=== PATIENT | female | born 1985 | race Caucasian/White ===

== ENCOUNTER 2024-07-12 14:26 | Outpatient (AMB) | payer OTHER, SELFPAY ==
--- NOTE | 2024-07-12 14:36 | MHC.OFFVIS ---
Intake Visit Reasons: Family Med Ref for VV Intake Note: Patient presents for VV. Has a vein on the right thigh that is burning, tingly. Some swelling and redness. Thigh vein is the one that hurts and is of great concern. Accompanied by: Self / Same As Patient Allergies No Known Allergies Allergy (Verified 07/12/24 14:38) [facility] Family Med Ref for VV: Details: Very pleasant 39-year-old patient presents for painful varicose veins. Complaints include pain over varicosities, swelling of lower extremities, cramping, fatigue, and heaviness of the lower extremities. It has been affecting there daily activities including walking. It is noted more so in right leg. Of note patient is a nonsmoker nondiabetic. Patient reports prior history of what sounds like sclerotherapy. Denies any history of ablation. Patient denies any history of DVT/ PE. Of note patient's mother had prior history of 2 PE events Patient denies any history of phlebitis. Trial of compression includes - [id number] They now present for vascular evaluation regarding their varicose veins. Review of Systems Const Reports as per HPI ENT Reports no additional complaints Card Denies chest pain, Denies chest pain at rest and Denies chest pain with activity Resp Denies chest congestion and Denies cough GI Reports no additional complaints Musc Details: pain over varicosities, aching of lower extremities, swelling, cramping, heaviness and tiredness, itching Denies abnormal gait Skin/Breast Reports pruritus and Denies wounds Neuro Reports no additional complaints and Denies abnormal gait Psych Denies no additional complaints Physical Exam Const General: cooperative, healthy appearing and comfortable Orientation/consciousness: oriented to person, oriented to place and oriented to time Neck Carotids: no bruits Chest Chest palpation & inspection: normal inspection of the chest and normal palpation of entire chest wall Resp Effort & Inspection: normal respiratory effort and able to speak in complete sentences Cardio Rate: regular rate Heart sounds: S1 normal heart sound present and S2 normal heart sound present Peripheral pulses: Peripheral pulses 2+ throughout GI Inspection: Yes normal to inspection Skin Other: +2 edema, large rope-like varicosities greater than 4 mm, right thigh and left calf CEAP Classification C4 - skin color changes Ep - Etiology Primary As - superficial veins P - reflux General skin exam: dry skin Neuro General: oriented to person, oriented to place and oriented to time Extrem Right lower extremity: full ROM, normal capillary refill and edema Left lower extremity: full ROM, normal capillary refill and edema Psych Mental Status: mental status grossly normal Assessment & Plan Assessment & Plan (1) Varicose veins of right lower extremity with inflammation: Code(s): I83.11 - Varicose veins of right lower extremity with inflammation Category: Medical Plan: In short, the patient has evidence of venous insufficiency. I have discussed the pathophysiology with the patient. In addition I have provided informational material regarding venous disease to the patient. We have discussed conservative measures including compression, elevation, and exercise. I have also provided a handout regarding appropriate use of compression stockings and where to purchase good compression stockings as well. I have taken the liberty of ordering venous insufficiency testing with the patient. They will follow up with me after testing. The patient had an opportunity to ask questions regarding the treatment plan. All questions were answered. Imaging studies, laboratory studies and physical exam results were discussed and reviewed in detail. No major barriers to understanding were identified. The patient expressed understanding and agreement with the above treatment plan. The patient is aware they should contact our office by phone for worsening of the current condition or the appearance of new symptoms. Thank you for allowing me to participate in the vascular care of this patient. If you have any questions or concerns regarding the treatment for the above condition please do not hesitate to contact me. The office telephone contact is [phone]. This note is constructed using voice recognition software. While every effort has been made to ensure accuracy, investment counselor errors may have been included. Thank you for allowing me to participate in the care of your patient. Yours sincerely, Nghia Parson MD, FACS, R.P.V.I. Orders: Orders US venous duplex LE BI 1 Week I83.11 - Varicose veins of right lower extremity with inflammation Coding Level of Care Code New Pt Level 4 (32500) Diagnoses Varicose veins of right lower extremity with inflammation I83.11
== END 2024-07-12 15:05 | disposition home or self-care (01) ==
LOC: HO.HVS 14:27
PROVIDERS: PCP Family Medicine; Visit Provider Surgery Vascular Surgery
DX: I83.11 Varicose veins of right lower extremity with inflammation (principal)
CPT/HCPCS: 99204

== ENCOUNTER → 2024-07-12 14:26 | Outpatient (BNVA) | payer OTHER, SELFPAY | PROVIDERS: PCP Family Medicine; Visit Provider Surgery Vascular Surgery | DX: I83.11 Varicose veins of right lower extremity with inflammation (principal) | CPT/HCPCS: 99202 ==

== ENCOUNTER 2024-07-27 08:15 | Outpatient (REF) | payer OTHER, SELFPAY ==
--- NOTE | ~2024-07-27 | US_ITS ---
EXAMINATION: US VENOUS BILATERAL LOWER EXTREMITIES (REFLUX EXAM) CLINICAL INDICATION: Leg pain and varicose veins. COMPARISON: None available. TECHNIQUE: Color-flow triplex imaging and compression Doppler was performed to evaluate both the deep and the superficial systems bilaterally. To evaluate the superficial system, the examination was performed in the upright position. Color-flow Doppler ultrasound and compression ultrasound were utilized. In addition, maneuvers were utilized to demonstrate reflux. FINDINGS: 1. DEEP VENOUS ULTRASOUND OF THE RIGHT LOWER EXTREMITY: Respiratory variation, normal compression and augmented flow are noted in the right common femoral vein as well as the right popliteal vein and there is no evidence of deep venous thrombosis at these locations. There is no evidence of reflux in the deep system in either the common femoral vein or the popliteal vein. There is no evidence of a Cannon's cyst. 2. SUPERFICIAL ULTRASOUND WITH DOPPLER OF RIGHT LOWER EXTREMITY: The right great saphenous vein is seen only at its origin measuring 8 mm and demonstrates 1.8 seconds of reflux. Has this patient undergone ablation? It is seen again in the mid calf and ankle measuring 2 and 3 mm without reflux. Duplicated Right Great Saphenous Vein: There is a lateral accessory saphenous measuring 5 mm that demonstrates over 3 seconds of reflux. The right small saphenous vein measures 3 mm and shows no reflux. Accessory Vein of Giacomini: None. Incompetent Perforators: None. Varices Present: Multiple varices are seen ranging in size up to 1.3 cm (which arises off the right accessory saphenous vein) which demonstrate reflux. 3. DEEP VENOUS ULTRASOUND OF THE LEFT LOWER EXTREMITY: Respiratory variation, normal compression and augmented flow are noted in the left common femoral vein as well as the left popliteal vein and there is no evidence of deep venous thrombosis at these locations. There is 2.4 seconds of reflux present in the left popliteal vein. There is no evidence of a Cannon's cyst. 4. SUPERFICIAL ULTRASOUND WITH DOPPLER OF LEFT LOWER EXTREMITY: Left great saphenous vein is only seen proximally measuring 1.2 cm and demonstrates reflux. It is again seen in the mid calf and ankle measuring 4 mm with 2.5 seconds of reflux. Duplicated Left Great Saphenous Vein: There is a 9 mm lateral accessory saphenous vein that demonstrates 2.5 seconds of reflux. The left small saphenous vein measures 3 mm and shows no reflux. Accessory Vein of Giacomini: None. Incompetent Perforators: There is an incompetent hypnotherapist 28 cm from the bottom of the foot measuring 3 mm with 1.5 seconds of reflux. Varices Present: Varices are present measuring up to 0.6 cm, some of which demonstrate reflux. US/US venous insuf bilat IMPRESSION: 1. There is 2.4 seconds of reflux in the left popliteal vein, but the deep venous systems are otherwise competent. 2. Both saphenous veins seen predominantly only at their origins with distal vein seen again at the level of the mid calf and ankle. 3. Bilateral lateral accessory saphenous veins are present with reflux. 4. Bilateral refluxing varicosities. 5. Incompetent hypnotherapist on the left, as described above. Electronically signed by: Hernandez Cummings MD 08/08/2024 10:37 AM [facility] P[facility]
== END 2024-07-27 08:16 | disposition home or self-care (01) ==
LOC: HO.US 08:15
PROVIDERS: PCP Family Medicine; Visit Provider Surgery Vascular Surgery
DX: I83.11 Varicose veins of right lower extremity with inflammation (principal)
CPT/HCPCS: 93970

== ENCOUNTER 2024-08-11 14:49 | Outpatient (AMB) | payer OTHER, SELFPAY ==
--- NOTE | 2024-08-11 14:51 | MHC.OFFVIS ---
Intake Visit Reasons: Follow up after ultrasound Intake Note: Follow up US 07/27/24 for LE VV. Left LE thigh Rope like vein and some veins on the Right LE. Left LE VV is painful, burning, tingling and causing some swelling. Started about 2 years ago. Hx of VV ablations in bilateral LE 2007 @ [facility]. Accompanied by: Self / Same As Patient Allergies evironmental Allergy (Mild, Uncoded 08/11/24 14:55) Itchy Eyes HPI HPI Follow up after ultrasound: Details: 39-year-old patient presents for follow-up evaluation regarding venous disease. Reports that they had previous venous ablation is actually done at the [facility] and developed a significantly large right lower extremity varicosity. It has been a source of pain and discomfort. They have been compliant with her compression with no significant relief. Now presents for follow-up with venous insufficiency testing. [facility] Medical History (Updated 08/11/24 @ 14:58 by SARA Jung) FH: mastectomy (~2023) Social History (Updated 08/11/24 @ 14:58 by SARA Jung) Patient Tobacco Use Status: Never used Tobacco Review of Systems Const Reports as per HPI ENT Reports no additional complaints Card Denies chest pain, Denies chest pain at rest and Denies chest pain with activity Resp Denies chest congestion and Denies cough GI Reports no additional complaints Musc Details: pain over varicosities, aching of lower extremities, swelling, cramping, heaviness and tiredness, itching Denies abnormal gait Skin/Breast Reports pruritus and Denies wounds Neuro Reports no additional complaints and Denies abnormal gait Psych Denies no additional complaints Physical Exam Const General: cooperative, healthy appearing and comfortable Orientation/consciousness: oriented to person, oriented to place and oriented to time Neck Carotids: no bruits Chest Chest palpation & inspection: normal inspection of the chest and normal palpation of entire chest wall Resp Effort & Inspection: normal respiratory effort and able to speak in complete sentences Cardio Rate: regular rate Heart sounds: S1 normal heart sound present and S2 normal heart sound present Peripheral pulses: Peripheral pulses 2+ throughout GI Inspection: Yes normal to inspection Skin Other: +2 edema, large rope-like varicosities greater than 4 mm right calf and thigh CEAP Classification C4 - skin color changes Ep - Etiology Primary As - superficial veins P - reflux General skin exam: dry skin Neuro General: oriented to person, oriented to place and oriented to time Extrem Right lower extremity: full ROM, normal capillary refill and edema Left lower extremity: full ROM, normal capillary refill and edema Psych Mental Status: mental status grossly normal Results Reviewed Results Reviewed: Brief summary of venous insufficiency testing is as follows: right great saphenous vein: negative right small saphenous vein: negative right accessory vein: none present left great saphenous vein: negative left small saphenous vein: negative left accessory vein: none present Please note there is no evidence of any venous aneurysms or significant tortuosity Assessment & Plan Assessment & Plan (1) Varicose veins of right lower extremity with inflammation: Code(s): I83.11 - Varicose veins of right lower extremity with inflammation Category: Medical Plan: This patient has varicose veins with inflammation. They continue to be a source of discomfort for the patient. The patient has tried conservative treatment with compression, leg elevation and exercise program for over 3 months time. They have been compliant with all treatment. This has provided minimal relief for the patient. I do not anticipate this course of treatment will alter the underlying etiology. The patient has been scheduled for lower extremity venous treatment inclusive of --- right leg microphlebectomy. Risks, benefits, and complications of this procedure has been discussed in detail with the patient including but not limited to bleeding, infection, and the development of a DVT. The patient has demonstrated a clear understanding and has consented. We will schedule the patient as soon as possible. Thank you for allowing us to participate in this patient's care. If there are any questions or concerns please do not hesitate to contact us. Coding Level of Care Code Est Pt Level 4 (07297) Diagnoses Varicose veins of right lower extremity with inflammation I83.11
--- OUTSIDE RECORDS SUMMARY | 2024-08-17 04:09 | XMS_ITS | Data Portability ---
Author Organization [employer] [facility] Address [address] [place] [address] Assessment Encounter Date Assessment Date Assessment LastModified by Organization Details LastModified Time 06/17/2024 06/17/2024 XRAYS: AP and Lateral Images of the Lumbar Spine from 12/29/2023 [place] [facility] [place] obtained and interpreted independently by me in clinic today and reviewed with the patient. Anatomy: Normal, no fractures or anomalies Alignment: Loss of lumbar lordosis, no spondylolisthesis, no scoliosis Degenerative Levels: Degenerative changes in the lower lumbar spine with some facet arthrosis particularly at L4-5 and L5-S1. Preservation of disc height overall. ADVANCED IMAGING: MRI of the Lumbar Spine from December 28, 2023 [place] [facility] [place] interpreted independently by me in clinic today and reviewed with the patient. Anatomy: There appears to be increased pedicle signal in the right L5 pedicle with what appears to be a pars fracture at area displacement. There is a right sided hemangioma in the L1 vertebral body. Alignment: Some loss of lumbar lordosis, no spondylolisthesis, no scoliosis Degenerative Levels: Some loss of disc hydration at L4-5. Significant facet arthrosis noted at the L4-5 and L5-S1 levels. Neurologic Compression: no neurologic compression. ASSESSMENT Diagnosis: 1) Right SI Joint DYsfunction 2) Right L5 Pars Fracture. The patient? s primary complaint is lower back pain. The pain is located on the right side of her lower back.On exam, the patient is neurologically intact throughout. She does have some tenderness over her right L5-S1 facet and the right PSIS. She has multiple positive SI joint provocative maneuvers. Her lumbar MRI shows a right-sided pars fracture at L5. I discussed the patient's and imaging findings. Her lumbar MRI does show a right-sided pars fracture at L5. She does, however, have all of the other findings of SI joint pathology. She has multiple physical exam findings that are pointing towards the SI joint. She also has had significant diagnostic relief with steroid injections into her right SI joint 2 times previously. She has done over 7 months of physical therapy and at this point, I do believe that she may be a good candidate for an SI joint stabilization. That said, the pars fracture on the right side at the L5-S1 level is certainly a confounding issue. I would like her to get a diagnostic injection into the right SI joint with local anesthetic alone to confirm the diagnosis. I would like this injection to be performed low in the SI joint, far away from the L5-S1 facet. A letter for this was sent to her to was sent to Dr. Shi to describe the injection and he will be performing this injection locally. I will also get a CT of the pelvis mostly to look at the anatomy of the pelvis, the hips, as well as the L5-S1 vertebrae. She will follow me after the CT scan and the injection. After which if she does get good diagnostic relief, we can consider moving forward with an SI joint stabilization. PLAN: The patients symptoms, imaging, diagnosis, and treatment options were discussed at length today. After educating the patient, the following recommendations were agreed upon: ------ The following new imaging should be obtained: CT Lumbar without Contrast on a Expedited basis ------ A referral was placed for Spinal Injections, specifically - right SI joint with local anesthetic alone. I discussed the risks and benefits of the injection. The patient was advised to keep a pain diary to assess the effects of the injection ------ FOLLOW UP The patient will follow up with us after obtaining the diagnostic tests above Not available 06/18/2024 11:54:07 07/29/2024 07/29/2024 ADVANCED IMAGING : CT of the Pelvis from 07/07/2024 were interpreted independently by me in clinic today and reviewed with the patient. Normal pelvic anatomy. No significant hip arthrosis noted. Degenerative change is seen in bilateral SI joints, slightly worse than the right side with a vacuum phenomenon in the right SI joint likely indicating some degree of micro instability. In the lower lumbar spine, there is a well healed pars defect on the right side at L5-S1. Some mild arthrosis and the facet joints at L45 and L5-S1 particularly at the right L4-5 facet. ASSESSMENT Diagnosis: Right SI Joint Dysfunction The patient? s primary complaint is lower back pain. The pain is located on the right side of her lower back.On exam, the patient is neurologically intact throughout. She does have some tenderness over her right L5-S1 facet and the right PSIS. She has multiple positive SI joint provocative maneuvers. Her pelvic CT shows degeneration in the SI joints. I discussed the patient's symptoms and imaging findings. Her CT does show air in the SI joint, which does indicate some degree of SI joint pathology. She had 95% pain relief for 2 hours after the diagnostic injection, which again confirms the diagnosis. She has now tried extensive physical therapy as well as multiple injections with relief. She has been wearing an SI joint stabilizing brace for several months and continues to have severe pain if she makes inappropriate movements or takes off the brace. She does have some concomitant lumbar pathology. However, the CT scan shows healing of the pars fracture at L5-S1 and I believe the diagnostic injection does confirm that the SI joint is a symptom generator. At this point, I do believe I have enough information and the patient has exhausted and failed conservative care to a sufficient degree to warrant surgical management. Surgery in my hands would be a right SI joint stabilization. I discussed the risks, benefits, and alternatives to surgery and the patient is interested in proceeding. We will plan to connect with her in about a month at which time we will have a better understanding of her schedule and can coordinate scheduling her surgery. She will follow up with me in 1 month. PLAN: The patients symptoms, imaging, diagnosis, and treatment options were discussed at length today. After educating the patient, the following recommendations were agreed upon: ------ FOLLOW UP The patient will follow up with us in a month Not available 07/29/2024 23:20:13 Plan of Treatment Reminders Order Date Submit Date Provider Last Modified By Organization Details Last Modified Time Details [facility]ments [facility] Sierra Hernandez MD Not available Not available Not available Lab None recorded. Referral None recorded. Procedures None recorded. Surgeries None recorded. Imaging XR, pelvis, 1 or 2 view 2023 024 [email or web address] [facility] - [facility] - [place], [address] [place] [address], [phone], 06/18/2024 11:51:22 CT, pelvis, w/o contrast - please include L5 in CT 2023 024 [facility], [address] [place], [address], 07/09/2024 14:40:50 Medication Orders None recorded. Patient TargetsNo targets recorded. Patient InstructionsNo instructions recorded. Reason for Referral None Reported. Results Created Date Observation Date Name Description Value Unit Range Abnormal Flag Note LastModifiedBy Organization Detail LastModifiedTime 06/17/20 XR, pelvi s, 1 or 2 view No observ ation record ed. [address] [place], [address], 06/18/2024 11:51:22 07/09/20 24 07/07/2024 CT, pelvi s, w/o contr ast No observ ation record ed. [address] [facility] [address] [place] [address], [address], 07/09/2024 14:43:45 Result Notes None recorded. Problems No Known Problems Procedures Surgical History None recorded. Imaging Results Imaging Date Name Status LastModified by Organiz ation Details LastModified Time 06/17/2024 XR, pelvis, 1 or 2 view completed [address] - [place] [address] [place], [address], 06/18/2024 11:51:22 07/07/2024 CT, pelvis, w/o contrast completed [address] [facility] [address] [place] [address], [address], 07/09/2024 14:43:45 Procedure Notes None recorded. Medical Equipment None Reported. Allergies No known drug allergies Medications Name Sig Start Date Stop Date Status Note LastModified by Organization Details LastModified Time 1ml syringe mis luer loc active Not Available Not Available Not Available terbinafine HCl 250 mg tablet TAKE 2 TABLETS DAILY FOR 7 DAYS EVERY 28 DAYS FOR 6 MONTHS active Not Available Not Available No t Available nystatin 100,000 unit/gram topical cream APPLY TO AFFECTED AREA TWICE A DAY IN THE MORNING AND IN THE EVENING active Not Available Not Available No t Available testosterone enanthate 200 mg/mL intramuscula r oil PLEASE SEE ATTACHED FOR DETAILED DIRECTIONS active Not Available Not Available N ot Available nystatin 100,000 unit/gram topical powder APPLY TO AFFECTED AREA TWICE A DAY active Not Available Not Available No t Available testosterone cypionate 200 mg/mL intramuscula r oil active Not Available Not Available Not Available oxycodone 5 mg tablet TAKE 1 TABLET BY MOUTH EVERY 4 HOURS NEEDED FOR BREAKTHROUG H PAIN FOR UP TO 3 DAYS. MAX 6TAB/DAY active Not Available Not Available No t Available testosterone 1.62 % (20.25 mg/1.25 gram) transdermal gel packet APPLY 2.5 G (2 PACKETS TOTAL) TOPICALLY 1 (ONE) TIME EACH DAY. active Not Available Not Available No t Available Vitals Date Recorded Body height Body mass index (BMI) Body weight Provider Name and Address Organization Details Last Updated DateTime 06/17/2024 167.64 cm 38.4 kg/m2 350321.98 [facility] 06/17/2024 10:17:47 Date Recorded Body height Body mass index (BMI) Body weight Provider Name and Address Organization Details Last Updated DateTime 07/29/2024 167.64 cm 38.4 kg/m2 070323.98 [facility] 07/29/2024 09:29:39 Social History Question Answer Notes LastModified by Organizat ion Details LastModified Time Tobacco Smoking Status [facility] 06/17/2024 10:18:40 What Is Your Level Of Alcohol Consumption? Occasional [email or web address] Information not available 06/17/2024 What Is Your Level Of Caffeine Consumption? Moderate [email or web address] Information not available 06/17/2024 What Was The Date Of Your Most Recent Tobacco Screening? 07/29/2024 [email or web address] Information not available 07/29/2024 Have You Ever Been Counseled For Unhealthy Alcohol Use? No [email or web address] Information not available 06/17/2024 Do You Use Any Illicit Or Recreational Drugs? Yes [email or web address] Information not available 06/17/2024 Has Tobacco Cessation Counseling Been Provided? No [email or web address] Information not available 06/17/2024 Do You Or Have You Ever Used Any Other Forms Of Tobacco Or Nicotine? No [email or web address] Information not available 06/17/2024 Sex: Unknown Functional Status None recorded. Mental Status None recorded. Family History Nothing Reported. Medical History Condition Response Coronary Artery Disease N Other N Gout N Blood Diseases N Hyperthyroidism N Blood disorders N Blood Transfusion N MRSA N Head Trauma/Injury N Emphysema N heart arrhythmia N Depression N COPD N Pneumonia N Arthritis (osteoarthritis, psoriatic, Rh eumatoid) N Steriod use (injection, oral) N Prostate Problems N Edema N Gastrointestinal Disease N Paralysis N Anxiety Disorder N Autoimmune disease N Dental problem (dentures) N Arthritis N Autoimmune Disorder (HIV/AIDS) N Blood Clot N Acid Reflux (GERD) N Cancer N Crohn's Disease N Leg or Foot Ulcers N Raynaud's Disease N Polio N Stroke/TIA N Arrhythmia N Rheumatoid Arthritis N Headaches Y Fibromyalgia N Kidney Disease N sports induced asthma N Hospitalizations N Spine/back problems N Migraines N Artificial Joints N Kidney or Bladder Problems N Skin Problems N Joint Pain N Neck Pain N Urinary Problems N Brain Injury N Ulcers N Infection N Rheumatic Fever N Bleeding Disorder N Tuberculosis N Hypertension (high blood pressure) N AIDS/HIV N Asthma Y Amputation N Substance Abuse N Respiratory Problem (asthma, COPD, sleep apnea) N Skin problem (eczema, ulcer, rash) N Sleep Disorder N Gastrointestinal Problem (GERD, reflux) N GERD/Reflux N Hepatitis N balance problem (vertigo) N Neuropathy N Pulmonary Embolism N Anxiety/Depression N Thyroid Disease N Ambulatory Support (cane, crutches, walk er) N Hernia N Ostomy N Hypothyroidism N Glaucoma N Lung Disease N Peripheral Vascular Disease (DVT, PE) N Pacemaker N Neurological Problem (MS, Parkinson's) N Vascular Disease N Anesthesia Complications N Deep Vein Thrombosis N Spasticity N Varicose Veins Y Head Injury/Concussion N Serious Illness or Injuries N Fischer Bite N History of fracture N Back Injury N Alcohol Overuse/Alcohol Abuse N Pain Management Treatment N Liver Disease N Organ Transplant N Dialysis N Foot Deformity N Dyslipidemia N Parkinson's Disease N Falls Y Thyroid Problems N ADD/ADHD N Osteoporosis/Osteopenia N Anemia N Lyme disease N Multiple Sclerosis N Back Pain Y Sjogren's Syndorme N Heart Attack ([place]) N Mental Illness N Heart Problems (atrial fibrillation, [place], pacemaker) N Diabetes N Seizures/Epilepsy N Hyperlipidemia (high cholesterol) N Congestive Heart Failure (CHF) N Diverticulitis N Vision Problems N Lupus N Ankylosing Spondylitis N Epilepsy/Seizures N Psoriasis N Sleep Apnea N Memory Loss (Alzheimer's, dementia) N Aneurysm N Heart Disease N Osteoporosis N Gynecological HistoryNo gynecological history recorded. Obstetrics History GPAL:G 0 P 0 0 0 0 Past Encounters Encounter ID Performer Location Encounter Start Date Encounter Closed Date Diagnosis/Indication Diagnosis SNOMED-CT Code Diagnosis ICD10 Code [id number] MD SHAHNAZ [facility] - [place] [place] [address] [place] [address] 06/17/2024 08:56:43 06/17/2024 10:47:14 Pain in pelvis 00419363 R10.2 Body mass index 30+ - obesity 083590044 Z68.38 [id number] Sierra Hernandez MD [facility] - OFFICE - [place] [address] [place] [address] 07/29/2024 09:05:13 07/29/2024 10:09:05 Body mass index 30+ - obesity 325961741 Z68.38 Sacroiliac joint pain 20 3058377 M53.3 Health Concerns Section Related Observation LastModified by Organization Detai ls LastModified Time None Recorded Concern Status LastModified by Organization Details LastModified Time None Recorded Advance Directives Directive None Recorded Payers Encounter Date Sequence Insurance Name Policy Number Policy [place] Covered Member ID [place] Member ID Guarantor Name 06/17/2024 1 [facility] [employer] - TOGETHER (MEDICAID HMO) [id number] Karla L Sushil [id number] 1 Karla Sushil 07/29/2024 1 [facility] [employer] - TOGETHER (MEDICAID HMO) [id number] Karla L Sushil [id number] 1 Karla Sushil Notes Date Note Type Note Provider Name and Address Organization Details Recorded Time 06/17/2024 text/html The patient is a 39 year old female who was referred to us by Dr. Shi. The patient? s primary complaint is lower back pain. The symptoms started 4 1/2 years ago. The patient believes the symptoms began due to a fall while hiking. The pain is dull and burning type in quality. It is 6/10 in severity. The patient reports no radiation of pain. The patient reports no significant weakness or numbness. The pain is worsened by sitting, standing, walking, biking, cooking, and yoga. Prior Treatments:The patient has been taking Tylenol and Ibuprofen with some relief. She has done 7 full months of physical therapy focused on these symptoms and the most recent course was in September of 2023. She underwent 2 prior injections into the right SI joint which gave her 75% relief for 3-4 weeks. The first injection was on 12/10/2023 at the right side with steroids and local anaesthetics, and the second injection was on 02/11/2024 at the right side with steroids and local anaesthetic. Both of these injections gave her 80% relief for 4 weeks. Relevant Medical History:N/A Social History: The patient is a non-smoker. She reports occasional alcohol use. She reports occasional marijuana use. She works as a physical therapist and self-employed. She lives with her and two kids. MD [address],[facility], [place], [address], [facility] 06/18/2024 11:54:16 07/29/2024 text/html The patient is a 39 y/o female who presents today for follow-up of her lower back pain. The patient? s primary complaint is lower back pain. The pain is located on the right side of her lower back. On exam, the patient is neurologically intact throughout. She does have some tenderness over her right L5-S1 facet and the right PSIS. She has multiple positive SI joint provocative maneuvers. Her lumbar MRI shows a right-sided pars fracture at L5. At the last appointment, I recommended obtaining CT scan of the pelvis and trialling right SI joint injection. The patient presents today, she is doing quite well overall. The patient rates the pain as 1/10 in severity today. She does have some ongoing right sided lower back pain. She reports no radiation of pain into the lower extremities. She reports no subjective weakness or numbness. She is not taking any medication for pain relief. She underwent a right sided SI joint purely diagnostic injection, which gave her 95% relief from her pain for 2 hours. MD [address],[facility], [place], [address], [facility] 07/29/2024 23:20:36 OBGyn Episode No OBEpisode recorded.
--- OUTSIDE RECORDS SUMMARY | 2024-08-17 04:09 | XMS_ITS | Continuity of Care Document ---
Author Organization LISA [employer] [facility] [place] [facility] Address [address] [place] [address] Assessment Encounter Date Assessment Date Assessment LastModified by Organization Details LastModified Time 06/17/2024 06/17/2024 XRAYS: AP and Lateral Images of the Lumbar Spine from 12/29/2023 done at [facility] [place] were obtained and interpreted independently by me [...] Lumbar Spine from December 28, 2023 at [facility] [place] were interpreted independently by me in clinic [...] us after obtaining the diagnostic tests above [email or web address] Not available 06/18/2024 11:54:07 Plan of Treatment Reminders Order Date Submit Date Provider Last Modified By Organization Details Last Modified Time Details Appointments [facility] 2023 03:30P M Sierra Hernandez MD Not available Not available Not available Lab None recorded. Referral None recorded. Procedures None recorded. Surgeries None recorded. Imaging XR, pelvis, 1 or 2 view 2023 [email or web address] [facility] [place], [address] [place] [address], [phone], 06/18/2024 11:51:22 CT, pelvis, w/o contrast - please include L5 in CT 2023 [facility], [address], [place], [address], 07/09/2024 14:40:50 Medication Orders None recorded. Patient TargetsNo targets recorded. Patient InstructionsNo instructions recorded. Reason for Referral None Reported. Results Created Date Observation Date Name Description Value Unit Range Abnormal Flag Note LastModifiedBy Organization Detail LastModifiedTime 06/17/20 XR, pelvi s, 1 or 2 view No observ ation record ed. [email or web address] [facility] [place] [address] [place], [address], 06/18/2024 11:51:22 07/09/2007/07/2024 CT, pelvi s, w/o contr ast No observ ation record ed. [email or web address] [facility] [address], [place], [address], 07/09/2024 14:43:45 Result Notes None recorded. Problems No Known Problems Procedures Surgical History None recorded. Imaging Results Imaging Date Name Status LastModified by Organiz ation Details LastModified Time 06/17/2024 XR, pelvis, 1 or 2 view completed [email or web address] [facility] [place] [address], [place], [address], 06/18/2024 11:51:22 Procedure Notes None recorded. Medical Equipment None [...] Updated DateTime 06/17/2024 167.64 cm 38.4 kg/m2 074798.98 g Vinicius Hutson [facility] 06/17/2024 10:17:47 Social History Question Answer Notes LastModified by Organizat ion Details LastModified Time Tobacco Smoking Status Never Smoker Vinicius flannery, [facility], [facility] 06/17/2024 10:18:40 What Is Your Level Of Alcohol Consumption? Occasional [email or web address] Information not available 06/17/2024 What Is Your Level Of Caffeine Consumption? Moderate [email or web address] Information not available 06/17/2024 What Was The Date Of Your Most Recent Tobacco Screening? 07/29/2024 [email or web address] Information not available 07/29/2024 Have You Ever Been Counseled For Unhealthy Alcohol Use? No [email or web address] Information not available 06/17/2024 Do You Use Any Illicit Or Recreational Drugs? Yes [email or web address] Information not available 06/17/2024 Has Tobacco Cessation Counseling Been Provided? No Information not available 06/17/2024 Do You Or Have You Ever Used Any Other Forms Of Tobacco Or Nicotine? No [email or web address] Information not available 06/17/2024 Sex: Unknown Functional Status None recorded. Mental Status None recorded. Family History Nothing Reported. Medical History Condition Response Coronary Artery Disease N Gout N Other N Blood Diseases N Hyperthyroidism N Blood Transfusion N MRSA N Blood disorders N Head Trauma/Injury N Emphysema N heart arrhythmia N COPD N Depression N Pneumonia N Arthritis (osteoarthritis, psoriatic, Rh [...] Raynaud's Disease N Polio N Stroke/TIA N Rheumatoid Arthritis N Arrhythmia N Headaches Y Fibromyalgia N Kidney Disease [...] walk er) N Hernia N Ostomy N Peripheral Vascular Disease (DVT, PE) N Glaucoma N Hypothyroidism N Lung Disease N Pacemaker N Neurological Problem (MS, Parkinson's) N Vascular Disease N Anesthesia Complications N Deep Vein Thrombosis N Varicose Veins Y Spasticity N Head Injury/Concussion N Serious Illness or Injuries N Fischer Bite N History of fracture N Back Injury N Alcohol Overuse/Alcohol Abuse N Pain Management Treatment N Liver Disease N Organ Transplant N Dialysis N Foot Deformity N Dyslipidemia N Parkinson's Disease N Falls Y Thyroid Problems N ADD/ADHD N Osteoporosis/Osteopenia N Anemia N Lyme disease N Back Pain Y Multiple Sclerosis N Sjogren's Syndorme N Heart Attack ([place]) N Heart Problems (atrial fibrillation, [place], pacemaker) N Mental Illness N Diabetes N Seizures/Epilepsy N Hyperlipidemia (high cholesterol) N Congestive Heart Failure (CHF) N Diverticulitis N Vision Problems N Ankylosing Spondylitis N Lupus N Psoriasis N Epilepsy/Seizures N Sleep Apnea N Memory Loss (Alzheimer's, dementia) N Aneurysm N Heart Disease N Osteoporosis N Gynecological HistoryNo gynecological history recorded. Obstetrics History GPAL:G 0 P 0 0 0 0 Past Encounters Encounter ID Performer Location Encounter Start Date Encounter Closed Date Diagnosis/Indication Diagnosis SNOMED-CT Code Diagnosis ICD10 Code [id number] Sierra Hernandez MD [facility] [place] - [address] [address] 06/17/2024 08:56:43 06/17/2024 10:47:14 Pain in pelvis 09449284 R10.2 Body mass index 30+ - obesity 380532924 Z68.38 Health Concerns Section Related Observation LastModified by Organization Detai ls LastModified Time None Recorded Concern Status LastModified by Organization Details LastModified Time None Recorded Payers Encounter Date Sequence Insurance Name Policy Number Policy [place] Covered Member ID [place] Member ID Guarantor Name 06/17/2024 1 [facility] [employer] - TOGETHER (MEDICAID HMO) [id number] Karla Ling [id number] Karla Ling Notes Date Note Type Note Provider Name [...] She lives with her and two kids. Sierra Hernandez MD [facility],[address], [address], [facility] 06/18/2024 11:54:16 OBGyn Episode No OBEpisode recorded.
--- OUTSIDE RECORDS SUMMARY | 2024-08-17 04:09 | XMS_ITS | Continuity of Care Document ---
Author Organization [employer] GojeeShea MBJI - [facility] Address [address] [place] [address] Assessment Encounter Date Assessment Date Assessment LastModified by Organization Details LastModified Time 07/29/2024 07/29/2024 ADV[facility]ED IMAGING : CT of [...] follow up with us in a month [email or web address] Not available 07/29/2024 23:20:13 Plan of Treatment Reminders Order Date Submit Date Provider Last Modified By Organization Details Last Modified Time Details [facility]ments [facility]30[facility] M Sierra Hernandez MD Not available Not available Not available Lab None recorded. Referral None recorded. Procedures None recorded. Surgeries None recorded. Imaging None recorded. Medication Orders None recorded. Patient TargetsNo targets recorded. Patient InstructionsNo instructions recorded. Reason for Referral None Reported. Results Created Date Observation Date Name Description Value Unit Range Abnormal Flag Note LastModifiedBy Organization Detail LastModifiedTime 07/09/2007/07/2024 CT, pelvi s, w/o contr ast No observ ation record ed. [email or web address] [facility] [address], [place], [address], 07/09/2024 14:43:45 Result Notes None recorded. Problems No Known Problems Medical Equipment None Reported. Allergies No known [...] Updated DateTime 07/29/2024 167.64 cm 38.4 kg/m2 796546.98 g Vinicius Hutson [facility] 07/29/2024 09:29:39 Social History Question Answer Notes LastModified by Organizat ion Details LastModified Time Tobacco Smoking Status Never Smoker Vinicius Hutson [facility] 06/17/2024 10:18:40 What Is Your Level Of Alcohol Consumption? Occasional [email or web address] Information not available 06/17/2024 What Is Your Level Of Caffeine Consumption? Moderate [email or web address] Information not available 06/17/2024 What Was The Date Of Your Most Recent Tobacco Screening? 07/29/2024 [email or web address] Information not available 07/29/2024 Have You Ever Been Counseled For Unhealthy Alcohol Use? No [email or web address] Information not available 06/17/2024 Do You Use Any Illicit Or Recreational Drugs? Yes [email or web address] Information not available 06/17/2024 Has Tobacco Cessation Counseling Been Provided? No [email or web address] Information not available 06/17/2024 Do You Or Have You Ever Used Any Other Forms Of Tobacco Or Nicotine? No [email or web address] Information not available 06/17/2024 Sex: Unknown Functional Status None recorded. Mental Status None recorded. Family History Nothing Reported. Medical History Condition Response Coronary Artery Disease N Other N Gout N Blood Diseases N Hyperthyroidism N Blood Transfusion N MRSA N Blood disorders N Emphysema N Head Trauma/Injury N heart arrhythmia N COPD N Depression [...] Stroke/TIA N Arrhythmia N Rheumatoid Arthritis N Fibromyalgia N Headaches Y Kidney Disease N sports induced asthma N [...] walk er) N Hernia N Ostomy N Glaucoma N Hypothyroidism N Lung Disease N Peripheral Vascular Disease [...] N Liver Disease N Organ Transplant N Foot Deformity N Dialysis N Dyslipidemia N Parkinson's Disease N Falls Y Thyroid Problems N ADD/ADHD N Osteoporosis/Osteopenia N Lyme disease N Anemia N Multiple Sclerosis N Back Pain Y Sjogren's Syndorme N Heart Attack ([place]) N Mental Illness N Heart Problems (atrial fibrillation, [place], pacemaker) N Diabetes N Seizures/Epilepsy N Hyperlipidemia (high cholesterol) N Congestive Heart Failure (CHF) N Diverticulitis N Vision Problems N Lupus N Ankylosing Spondylitis N Psoriasis N Epilepsy/Seizures N Sleep Apnea N Memory Loss (Alzheimer's, dementia) N Aneurysm N Heart Disease N Osteoporosis N Gynecological HistoryNo gynecological history recorded. Obstetrics History GPAL:G 0 P 0 0 0 0 Past Encounters Encounter ID Performer Location Encounter Start Date Encounter Closed Date Diagnosis/Indication Diagnosis SNOMED-CT Code Diagnosis ICD10 Code [id number] Sierra Hernandez MD [facility] - [facility] [address] [address] 07/29/2024 09:05:13 07/29/2024 10:09:05 Body mass index 30+ - obesity 383837046 Z68.38 Sacroiliac joint pain 20 3348769 M53.3 Health Concerns Section Related Observation LastModified by Organization Detai ls LastModified Time None Recorded Concern Status LastModified by Organization Details LastModified Time None Recorded Payers Encounter Date Sequence Insurance Name Policy Number Policy [place] Covered Member ID [place] Member ID Guarantor Name 07/29/2024 1 [facility] [employer] - TOGETHER (MEDICAID HMO) [id number] Karla Ling [id number] 1 Karla Ling Notes Date Note Type Note Provider Name and Address Organization Details Recorded Time 07/29/2024 text/html The patient is a 39 [...] relief from her pain for 2 hours. Sierra Hernandez MD [address] [place] [address],[address], [address], [facility], [facility] 07/29/2024 23:20:36 OBGyn Episode No OBEpisode recorded.
== END 2024-08-11 15:13 | disposition home or self-care (01) ==
PROVIDERS: PCP Family Medicine; Visit Provider Surgery Vascular Surgery
DX: I83.11 Varicose veins of right lower extremity with inflammation (principal)
CPT/HCPCS: 99214

== ENCOUNTER → 2024-08-11 14:49 | Outpatient (BNVA) | payer OTHER, SELFPAY | PROVIDERS: PCP Family Medicine; Visit Provider Surgery Vascular Surgery | DX: I83.11 Varicose veins of right lower extremity with inflammation (principal) | CPT/HCPCS: 99212 ==

== ENCOUNTER 2024-08-22 08:40 | Day surgery (SDC) | payer OTHER, SELFPAY ==
[2024-08-22] VITALS (8 sets, daily range): BP systolic 103–118; BP diastolic 57–80; PULSE 56–78; RESP 15–17; TEMP 36.1–36.5; O2SAT 95–98; BMI 37.3
--- OUTSIDE RECORDS SUMMARY | 2024-08-22 08:48 | XMS_ITS | Continuity of Care Document ---
Author Organization [employer] SHAHNAZ [facility] - [facility] Address [address] [place] [address] Assessment Encounter Date Assessment Date Assessment LastModified [...] Organization Details Last Modified Time Details [facility]ointments [facility] 03:30P M Sierra Hernandez MD Not [...] ast No observ ation record ed. [email or web address] [facility] [address], [place], [address], 07/09/2024 14:43:45 Result Notes None recorded. Problems [...] Updated DateTime 07/29/2024 167.64 cm 38.4 kg/m2 991034.98 g Vinicius Hutson [facility] 07/29/2024 09:29:39 Social History Question Answer Notes LastModified by Organizat ion Details LastModified Time Tobacco Smoking Status Never Smoker Vinicius Hutson [facility] 06/17/2024 10:18:40 What Is Your Level Of Alcohol Consumption? Occasional [email or web address] Information not available 06/17/2024 What Is Your Level Of Caffeine Consumption? Moderate [email or web address] Information not available 06/17/2024 What Was The Date Of Your Most Recent Tobacco Screening? 07/29/2024 [email or web address] Information not available 07/29/2024 Have You Ever Been Counseled For Unhealthy Alcohol Use? No [email or web address] Information not available 06/17/2024 Do You Use Any Illicit Or Recreational Drugs? Yes Information not available 06/17/2024 Has Tobacco Cessation Counseling Been Provided? No [email or web address] Information not available 06/17/2024 Do You Or Have You Ever Used Any Other Forms Of Tobacco Or Nicotine? No [email or web address] Information not available 06/17/2024 Sex: Unknown Functional [...] Pain Y Sjogren's Syndorme N Heart Attack ([place]) N Mental Illness N Heart Problems (atrial fibrillation, [place], pacemaker) N Diabetes N Seizures/Epilepsy N Hyperlipidemia [...] Diagnosis/Indication Diagnosis SNOMED-CT Code Diagnosis ICD10 Code [id number] Sierra Hernandez MD [facility] - [facility] - [address] [address] 07/29/2024 09:05:13 07/29/2024 10:09:05 Body mass index 30+ - obesity 007883648 Z68.38 Sacroiliac joint pain 20 3313092 M53.3 Health Concerns Section Related Observation LastModified by Organization Detai ls LastModified Time None Recorded Concern Status LastModified by Organization Details LastModified Time None Recorded Payers Encounter Date Sequence Insurance Name Policy Number Policy [place] Covered Member ID [place] Member ID Guarantor Name 07/29/2024 1 [facility] [employer] - TOGETHER (MEDICAID HMO) [id number] Karla Ling [id number] Karla Ling Notes Date Note Type [...] pain for 2 hours. Sierra Hernandez MD [address] [place] [address],[address], [address], [facility], [facility] 07/29/2024 23:20:36 OBGyn Episode No OBEpisode recorded.
--- OUTSIDE RECORDS SUMMARY | 2024-08-22 08:48 | XMS_ITS | Continuity of Care Document ---
Author Organization LISA [employer] [facility] - [facility] Address [address] [place] [address] Assessment Encounter Date Assessment Date Assessment LastModified by Organization Details LastModified Time 06/17/2024 06/17/2024 XRAYS: AP and Lateral Images of the Lumbar Spine from 12/29/2023 done at [facility] were obtained and interpreted [...] Lumbar Spine from December 28, 2023 at [facility] were interpreted independently by [...] Organization Details Last Modified Time Details Appointments [facility] 2023 03:30P M Sierra Hernandez MD Not available Not available Not available Lab None recorded. Referral None recorded. Procedures None recorded. Surgeries None recorded. Imaging XR, pelvis, 1 or [email or web address] [facility] [place], [address] [place] [address], [address], 06/18/2024 11:51:22 CT, pelvis, w/o contrast - please include L5 in CT 2023 [facility], [address] [facility], [place], [address], 07/09/2024 14:40:50 Medication Orders None recorded. Patient TargetsNo targets recorded. Patient InstructionsNo instructions recorded. Reason for Referral None Reported. Results Created Date Observation Date Name Description Value Unit Range Abnormal Flag Note LastModifiedBy Organization Detail LastModifiedTime 06/17/20 XR, pelvi s, 1 or 2 view No observ ation record ed. [email or web address] [facility] - [place] [address] [place], [address], 06/18/2024 11:51:22 07/09/2007/07/2024 CT, pelvi s, w/o contr ast No observ ation record ed. [email or web address] [facility] Imaging [address], [place], [address], 07/09/2024 14:43:45 Result Notes None recorded. Problems No Known Problems Procedures Surgical History None recorded. Imaging Results Imaging Date Name Status LastModified by Organiz ation Details LastModified Time 06/17/2024 XR, pelvis, 1 or [email or web address] [facility] [place] [address], [place], [address], 06/18/2024 11:51:22 Procedure Notes None recorded. Medical [...] Updated DateTime 06/17/2024 167.64 cm 38.4 kg/m2 938504.98 g Vinicius Hutson [facility], [facility] 06/17/2024 10:17:47 Social History Question Answer Notes LastModified by Organizat ion Details LastModified Time Tobacco Smoking Status Never Smoker Vinicius flannery, [facility], [facility] 06/17/2024 10:18:40 What Is Your Level Of Alcohol Consumption? Occasional [email or web address] Information not available 06/17/2024 What Is Your Level Of Caffeine Consumption? Moderate [email or web address] Information not available 06/17/2024 What Was The Date Of Your Most Recent Tobacco Screening? 07/29/2024 [email or web address] Information not available 07/29/2024 Have You Ever Been Counseled For Unhealthy Alcohol Use? No [email or web address] Information not available 06/17/2024 Do You Use Any Illicit Or Recreational Drugs? Yes [email or web address] Information not available 06/17/2024 Has Tobacco Cessation Counseling Been Provided? No [email or web address] Information not available 06/17/2024 Do You Or Have You Ever Used Any Other Forms Of Tobacco Or Nicotine? No [email or web address] Information not available 06/17/2024 Sex: Unknown Functional [...] Pain Y Sjogren's Syndorme N Heart Attack ([place]) N Mental Illness N Heart Problems (atrial fibrillation, [place], pacemaker) N Diabetes N Seizures/Epilepsy N Hyperlipidemia [...] Diagnosis/Indication Diagnosis SNOMED-CT Code Diagnosis ICD10 Code [id number] Sierra Hernandez MD [facility] - [facility] - [address] [address] 06/17/2024 08:56:43 06/17/2024 10:47:14 Pain in pelvis 08872420 R10.2 Body mass index 30+ - obesity 297527725 Z68.38 Health Concerns Section Related Observation LastModified by Organization Detai ls LastModified Time None Recorded Concern Status LastModified by Organization Details LastModified Time None Recorded Payers Encounter Date Sequence Insurance Name Policy Number Policy [place] Covered Member ID [place] Member ID Guarantor Name 06/17/2024 1 [facility] [employer] - TOGETHER (MEDICAID HMO) [id number] Karla Ling [id number] Karla Ling Notes Date Note Type [...] and two kids. Sierra Hernandez MD [address] [facility],[address], [address], [facility], [facility] 06/18/2024 11:54:16 OBGyn Episode No OBEpisode recorded.
--- OUTSIDE RECORDS SUMMARY | 2024-08-22 08:48 | XMS_ITS | Data Portability ---
Author Organization [employer] [facility] Address [address] [place] [address] Assessment Encounter Date Assessment Date Assessment LastModified by Organization Details LastModified Time 06/17/2024 06/17/2024 XRAYS: AP and Lateral Images of the Lumbar Spine from 12/29/2023 done at [facility] were obtained and interpreted independently by me [...] Lumbar Spine from December 28, 2023 at [facility] were interpreted independently by me in clinic [...] Organization Details Last Modified Time Details [facility]ointments [facility] 03:30P M Sierra Hernandez MD Not available Not available Not available Lab None recorded. Referral None recorded. Procedures None recorded. Surgeries None recorded. Imaging XR, pelvis, 1 or 2 view [email or web address] [facility] - [facility] - [place], [address] [place] [address], [address], 06/18/2024 11:51:22 CT, pelvis, w/o contrast - please include L5 in CT 2023 024 [facility], [address] [place], [address], 07/09/2024 14:40:50 Medication Orders None recorded. Patient TargetsNo targets recorded. Patient InstructionsNo instructions recorded. Reason for Referral None Reported. Results Created Date Observation Date Name Description Value Unit Range Abnormal Flag Note LastModifiedBy Organization Detail LastModifiedTime 06/17/20 XR, pelvi s, 1 or 2 view No observ ation record ed. [address] [place], [address], 06/18/2024 11:51:22 07/09/20 24 07/07/2024 CT, pelvi s, w/o contr ast No observ ation record ed. [address] [facility] [address] [place] [address], [address], 07/09/2024 14:43:45 Result Notes None recorded. Problems No Known Problems Procedures Surgical History None recorded. Imaging Results Imaging Date Name Status LastModified by Organiz ation Details LastModified Time 06/17/2024 XR, pelvis, 1 or 2 view completed [address] - [place] [address] [place], [address], 06/18/2024 11:51:22 07/07/2024 CT, pelvis, w/o contrast completed [address] [facility] [address] [place] [address], [address], 07/09/2024 14:43:45 Procedure Notes None recorded. Medical [...] Updated DateTime 06/17/2024 167.64 cm 38.4 kg/m2 805340.98 g [facility] 06/17/[facility]24 10:17:47 Date Recorded Body height Body mass index (BMI) Body weight Provider Name and Address Organization Details Last Updated DateTime 07/29/2024 167.64 cm 38.4 kg/m2 590967.98 [facility] 07/29/2024 09:29:39 Social History Question Answer Notes LastModified by Organizat ion Details LastModified Time Tobacco Smoking Status [facility] 06/17/2024 10:18:40 What Is Your Level Of Alcohol Consumption? Occasional [email or web address] Information not available 06/17/2024 What Is Your Level Of Caffeine Consumption? Moderate [email or web address] Information not available 06/17/2024 What Was The Date Of Your Most Recent Tobacco Screening? 07/29/2024 [email or web address] Information not available 07/29/2024 Have You Ever Been Counseled For Unhealthy Alcohol Use? No Information not available 06/17/2024 Do You Use Any Illicit Or Recreational Drugs? Yes [email or web address] Information not available 06/17/2024 Has Tobacco Cessation Counseling Been Provided? No [email or web address] Information not available 06/17/2024 Do You Or Have You Ever Used Any Other Forms Of Tobacco Or Nicotine? No [email or web address] Information not available 06/17/2024 Sex: Unknown Functional Status None recorded. Mental Status None recorded. Family History Nothing Reported. Medical History Condition Response Coronary Artery Disease N Other N Gout N Blood Diseases N Hyperthyroidism N MRSA N Blood disorders N Blood Transfusion N Emphysema N Head Trauma/Injury N heart [...] Stroke/TIA N Rheumatoid Arthritis N Arrhythmia N Fibromyalgia N Headaches Y Kidney Disease [...] Embolism N Anxiety/Depression N Thyroid Disease N Hernia N Ambulatory Support (cane, crutches, walk er) N Ostomy N Peripheral Vascular Disease (DVT, PE) N Lung Disease N Glaucoma N Hypothyroidism N Pacemaker N Neurological Problem ([place], Parkinson's) [...] Pain Y Sjogren's Syndorme N Heart Attack ([place]) N Mental Illness N Heart Problems (atrial fibrillation, [place], pacemaker) N Diabetes N Seizures/Epilepsy N Hyperlipidemia [...] Diagnosis/Indication Diagnosis SNOMED-CT Code Diagnosis ICD10 Code [id number] MD SHAHNAZ [facility] - [place]ICE [place] [place] [address] 06/17/2024 08:56:43 06/17/2024 10:47:14 Pain in pelvis 53056583 R10.2 Body mass index 30+ - obesity 344202660 Z68.38 [id number] Sierra Hernandez MD [facility]I - OFFICE - [place] [address] [place] [address] 07/29/2024 09:05:13 07/29/2024 10:09:05 Body mass index 30+ - obesity 956487966 Z68.38 Sacroiliac joint pain 20 7536916 M53.3 Health Concerns Section Related Observation LastModified by Organization Detai ls LastModified Time None Recorded Concern Status LastModified by Organization Details LastModified Time None Recorded Advance Directives Directive None Recorded Payers Encounter Date Sequence Insurance Name Policy Number Policy [place] Covered Member ID [place] Member ID Guarantor Name 06/17/2024 1 [facility] [employer] - TOGETHER (MEDICAID HMO) [id number] Karla L Sushil [id number] Karla Sushil 07/29/2024 1 [facility] [email or web address] - TOGETHER (MEDICAID HMO) [id number] Karla L Sushil [id number] Karla Sushil Notes Date Note Type [...] her and two kids. MD [address],[facility] [address], [place], [address], [facility] 06/18/2024 11:54:16 07/29/2024 text/html The patient is [...] pain for [address] hours. MD [address],[facility] [address], [place], [address], [facility] 07/29/2024 23:20:36 OBGyn Episode No OBEpisode recorded.
--- NOTE | 2024-08-22 08:57 | MHC.SHP ---
Pre-Procedural Eval Section A - 24 Hr Update-Section A only Date of Service: 08/22/24 The patient is an INPATIENT: No Changes since office visit: Yes Patient answered all questions The patient has been examined within 24 hours of the surgical procedure. The History & Physical has been completed within 30 days and I have reviewed it.: Yes Section B - Complete if H&P > 30 days Chief Complaint: Varicose veins of right lower extremity Allergies: Allergies Allergy/AdvReac Type Severity Reaction Status Date / Time evironmental Allergy Mild Itchy Eyes Uncoded 08/11/24 14:55 Plan I have reviewed the history and physical and performed a pertinent physical examination on my patient. No changes have occurred unless specified. Time Spent With Patient Time: Total time managing care of this patient today ____ minutes.
[2024-08-22 09:33] LABS: UPreg QC Valid YES; Urine Pregnancy NEGATIVE (NEGATIVE)
[2024-08-22] MEDS: Lactated Ringers 1,000 ML 100 ML IVCONT (09:41)
--- NOTE | 2024-08-22 10:20 | HO.ANESPROP2 ---
Documented by User: Talia Mancia NP 08/19/24 11:12 HPI - Anesthesia Eval Consult details Narrative: Shawn, he/him 39yo M (assigned female at ) for MicroPhlebectomy [facility] Active Problems Active Problems: All Active Problems Varicose veins of right lower extremity with inflammation (Acute) Past Medical History Medical History (Updated 08/11/24 @ 14:58 by SARA Jung) FH: mastectomy (~2023) Surgical History Surgical History (Updated 08/22/24 @ 09:12 by Indira Munson RN) Hx of wisdom tooth extraction Social History Social History (Updated 08/11/24 @ 14:58 by SARA Jung) Patient Tobacco Use Status: Former Tobacco user Use of substances other than those prescribed or required for medical reasons: Yes Substance Use Type Other:: smoked and edibles-last used over a wk ago Substance Use Frequency: Occasionally Are you DNR?: No Advance Directives: No Advance Directives Information Provided: Yes Recently lost weight without trying: No Meds Allergies Allergy/AdvReac Type Severity Reaction Status Date / Time evironmental Allergy Mild Itchy Eyes Uncoded 08/11/24 14:55 Home Medications ?Medication ?Instructions ?Recorded ?Confirmed ?Last Taken ?Type cetirizine 10 mg capsule (Zyrtec) 10 mg PO DAILY PRN Allergy Symptoms 08/11/24 Unknown History testosterone 1.62 % (20.25 mg/1.25 1 packet transdermal DAILY 08/11/24 Unknown History gram) transdermal gel packet terbinafine HCl 250 mg tablet mg PO 08/22/24 08/22/24 Unknown History Assessment and Plan Assessment Anesthesia Assessment: Chart Reviewed Documented by User: Indira Damico DO 08/22/24 10:54 PMFSH Past Medical History Medical History (Updated 08/11/24 @ 14:58 by SARA Jung) FH: mastectomy (~2023) Family History Family history of problems with anesthesia: No Surgical History Surgical History (Updated 08/22/24 @ 09:12 by Indira Munson RN) Hx of wisdom tooth extraction History of Problems with Anesthesia: No Social History Social History (Updated 08/11/24 @ 14:58 by SARA Jung) Patient Tobacco Use Status: Former Tobacco user Use of substances other than those prescribed or required for medical reasons: Yes Substance Use Type Other:: smoked and edibles-last used over a wk ago Substance Use Frequency: Occasionally Are you DNR?: No Advance Directives: No Advance Directives Information Provided: Yes Recently lost weight without trying: No Meds Allergies Allergy/AdvReac Type Severity Reaction Status Date / Time evironmental Allergy Mild Itchy Eyes Uncoded 08/11/24 14:55 Home Medications ?Medication ?Instructions ?Recorded ?Confirmed ?Last Taken ?Type cetirizine 10 mg capsule (Zyrtec) 10 mg PO DAILY PRN Allergy Symptoms 08/11/24 Unknown History testosterone 1.62 % (20.25 mg/1.25 1 packet transdermal DAILY 08/11/24 Unknown History gram) transdermal gel packet terbinafine HCl 250 mg tablet mg PO 08/22/24 08/22/24 Unknown History Exam Exam Date and Time: 08/22/24 1020 Height,Weight and Vital Signs: Height 5 ft 6 in Weight 104.78 kg Vital Signs Temperature 97.7 F 08/22/24 09:21 Pulse Rate 78 08/22/24 09:21 Respiratory Rate 15 08/22/24 09:21 Blood Pressure 117/80 08/22/24 09:21 Pulse Oximetry 98 08/22/24 09:21 Oxygen Delivery Method Room Air 08/22/24 09:21 Temperature 97.7 F 08/22/24 09:21 Pulse Rate 78 08/22/24 09:21 Respiratory Rate 15 08/22/24 09:21 Blood Pressure 117/80 08/22/24 09:21 Pulse Oximetry 98 08/22/24 09:21 Oxygen Delivery Method Room Air 08/22/24 09:21 Airway Mallampati Class: I TM Dist: >3cm Neck ROM: Full Loose/Missing/Broken Teeth: No (patient denies any loose or broken teeth) Heart: S1S2 Lungs: CTAB Assessment and Plan Assessment Anesthesia Assessment: Anesthesia Plan Discussed and Chart Reviewed Final Anesthetic Review Family History of Problems with Anesthesia: No History of Problems with Anesthesia: No NPO: Yes ASA Class: II Final Preanesthetic Review: No Changes in Pt Med Stat, Meds/Allgs Chart Reviewed, Consent Obtained/Reviewed and Anes Risks/Benef Reviewed Patient Risk: Low Procedure Risk: Low Anesthetic Plan Anesthetic Plan: GA and Agree w/ Assess. and Plan Disposition: Standard PACU
--- NOTE | 2024-08-22 11:42 | P.OP_ITS ---
Operative Note Operative Note Date of Service: 08/22/24 Narrative: Operative note by [facility] Preoperative diagnosis: Right leg varicose veins with inflammation Postoperative diagnosis: Same Procedure: Right leg microphlebectomy (21) Surgeon:Nghia Parson M.D. Dental Detail Representative: Randi SILVA Anesthesia: General Specimens: 1 Drains: None Estimated blood loss: Minimal Indications: Pleasant 39-year-old patient with history of right lower extremity varicosities. They were rather large in nature and they now present for right leg microphlebectomy. Risks benefits complications were discussed in detail with the patient they understood and consented. Procedure in detail: Varicose veins were marked in the standing position on the right leg and the patient was then placed in the supine position. The right lower extremity was prepared and draped to allow knee flexion in the sterile field. The patient had large superficial varicose veins with significant symptoms of pain. It was therefore determined to perform microphlebectomies of the clusters of varicose veins. The patient had bulging varicose veins which were previously marked in the standing position. A small stab incision was made longitudinally directly overlying the varicose vein in the calf and the varicose vein was grasped with a hemostat aided by a vein hook. It was then dissected as far proximally and distally as possible and avulsed. A total of 21 stab incisions were made and the procedure of stab phlebectomies was repeated 21 times. Hemostasis was checked and stab incision sites were closed with steri-strips and sterile dressing was given with gauze and krilex wrap followed by an khalida bandage. There were no complications and blood loss was minimal. Post-Op instructions were given and a follow-up appointment was recommended. This note is constructed using voice recognition software. While every effort has been made to ensure accuracy, cloud engagement partner errors may have been included. Thank you for allowing me to participate in the care of your patient. Yours sincerely, Nghia Parson MD, FACS, R.P.V.I.
== END 2024-08-22 12:57 | disposition home or self-care (01) ==
PROVIDERS: Nurse Practitioner; PCP Family Medicine; Visit Provider Surgery Vascular Surgery
PROC: (CPT 37766; principal; 2024-08-22 10:00)
DX: I83.11 Varicose veins of right lower extremity with inflammation (principal); M79.661 Pain in right lower leg; R60.0 Localized edema; J30.2 Other seasonal allergic rhinitis; Z79.899 Other long term (current) drug therapy; Z87.891 Personal history of nicotine dependence; Z98.890 Other specified postprocedural states
CPT/HCPCS: 37766; 81025; 88304; J0690; J1100; J1885; J2003; J2250; J2405; J2704; J2795; J3010

== ENCOUNTER → 2024-08-22 08:40 | Outpatient (BNV) | payer OTHER, SELFPAY | PROVIDERS: PCP Family Medicine; Visit Provider Surgery Vascular Surgery | DX: I83.11 Varicose veins of right lower extremity with inflammation (principal) | CPT/HCPCS: 37766 ==

== ENCOUNTER 2024-09-02 09:49 | Outpatient (AMB) | payer OTHER, SELFPAY ==
--- NOTE | 2024-09-02 09:51 | MHC.OFFVIS ---
Intake Visit Reasons: follow up for incision check per pt Intake Note: Follow up for open incisions w/ drainage s/p Right LE Micro 08/22/24. Started after 1 week when steri strips fell off. School Occupational Therapist Required: No Accompanied by: Self / Same As Patient Allergies evironmental Allergy (Mild, Uncoded 09/02/24 09:53) Itchy Eyes HPI HPI follow up for incision check per pt: Details: Shawn, a pleasant 39yo patient, is presenting today for concerns s/p microphlebectomy performed in the OR last Thursday, 08/22. The pt states that when the steri strips fell off of the top incision sites on the top of their thigh yesterday they noted there was a yellow/green discharge on the steri strip. They also state that the areas around the top 2 incision sites seem hard/more painful then the other areas. They applied new steri strips (sterile ones they had at home) last night and came in today. They note that the other incisions are fine and there is no concerns. They deny any fever/chills/body aches. There is no drainage noted from any of the other areas this morning. [facility] Medical History FH: mastectomy (~2023) Surgical History Hx of wisdom tooth extraction Social History Patient Tobacco Use Status: Former Tobacco user Review of Systems Const Reports as per HPI and Denies weakness ENT Reports Normal hearing present and Denies dizziness Card Reports as per HPI, Denies chest pain, Denies chest pain at rest, Denies chest pain with activity, Denies dyspnea and Denies dyspnea on exertion Resp Reports as per HPI, Denies cough, Denies dyspnea and Denies dyspnea on exertion GI Reports as per HPI, Denies abdominal pain, Denies nausea and Denies vomiting Musc Denies numbness Skin/Breast Reports as per HPI, Denies erythema and Denies wounds Neuro Reports Normal hearing present, Denies dizziness, Denies numbness, Denies Sensory deficit (Neuro) and Denies weakness Psych Reports no additional complaints Endo Reports no additional complaints Physical Exam Const General: healthy appearing and no acute distress Orientation/consciousness: patient oriented x3 HEENT Head: Yes normal to inspection Ears: hearing grossly normal bilaterally Mouth: Normal oral and palatal mucosa present Resp Effort & Inspection: normal respiratory effort and able to speak in complete sentences Auscultation: clear to auscultation bilaterally Cardio Jugular venous distension: no JVD Rate: regular rate Rhythm: regular rhythm Heart sounds: S1 normal heart sound present and S2 normal heart sound present Bruits: no abdominal aortic bruits, no carotid bruits, no femoral bruits and no renal bruits Peripheral pulses: Peripheral pulses 2+ throughout GI Inspection: Yes normal to inspection Palpation (GI): No Abdominal aortic bruit present Skin General skin exam: no rashes or lesions noted Wounds: no wounds Hair: normal Neuro General: patient oriented x3 Cranial nerves: Yes Normal hearing present Cognition (Neuro): normal cognition Gait exam (Neuro): Normal gait present Motor exam (neuro): 5/5 motor strength present throughout Sensory Exam: No Sensory deficit (Neuro) Extrem Other: Right lower extremity: microphlebectomy incision sites on upper thigh (2 highest) - steri strips removed, both sites are non-erythematous, no drainage or bleeding noted; not warm/hot to the touch. No signs of infection. Areas of swelling/hardness noted around the 2 incision sites, slightly painful to palpation. Bruising, in various stages, noted throughout the right thigh area, around the incision sites and extending towards the medial thigh. General: Yes normal to inspection, Yes full ROM, Yes capillary refill normal and Yes normal gait Assessment & Plan Assessment & Plan (1) Varicose veins of right lower extremity with inflammation: Code(s): I83.11 - Varicose veins of right lower extremity with inflammation Category: Medical Plan: Shawn is presenting today with concerns of 2 of the incision sites from a microphlebectomy in the OR on 08/22. They state they have been doing well since the procedure but noticed last night that when the steri strips fell off of the top 2 sites, there was some yellow/green discharge and they seemed more open and were concerned. I discussed with them that there were no signs of infection and the sites were healing well. We discussed applying heat to the areas to decrease the swelling. We discussed the s/s of infection including redness, warmth, and fever/chills, but also discussed that they are almost 2w after surgery and infection risk goes down significantly. We discussed that the discharge that they saw was likely slough, which is old tissue the body is pushing out and to not be concerned about it. There was no slough/discharge/bleeding noted today and the sites are closing up. We discussed that it can take >1m for the sites to heal/decrease swelling as well as the bruising. We applied steri strips back over the 2 sites; they state they have young children that climb on them and we re-applied them for more protection to facilitate healing. They are supposed to come next Thursday for a follow up; they were ok with this appt being a follow up appt. I did discuss with them that if they have any s/s of infection or have any other concerns, that they can reach back out to us and we will see them again. We discussed to continue with heat to help with the swelling and to keep the areas clean and dry. If there are any questions or concerns, please do not hesitate to contact us. Coding Level of Care Code Global (14161) Diagnoses Varicose veins of right lower extremity with inflammation I83.11
--- OUTSIDE RECORDS SUMMARY | 2024-09-02 09:57 | XMS_ITS | Data Portability ---
Author Organization [email or web address], [employer] [facility] Address [address] [place] [address] Assessment Encounter Date Assessment Date Assessment LastModified by Organization Details LastModified Time 06/17/2024 06/17/2024 XRAYS: AP and Lateral Images of the Lumbar Spine from 12/29/2023 done at [facility] were obtained and interpreted independently by [...] Lumbar Spine from December 28, 2023 at [facility] were interpreted independently by me in [...] Organization Details Last Modified Time Details [facility]ments [facility] M Sierra Hernandez MD Not available Not available Not available Lab None recorded. Referral None recorded. Procedures None recorded. Surgeries None recorded. Imaging XR, pelvis, 1 or 2 view 2023 024 [email or web address] [facility] - Office - [place], [address] [place] [address], [phone], 06/18/2024 11:51:22 CT, pelvis, w/o contrast - please include L5 in CT 2023 024 [facility], [address] [place], [address], 07/09/2024 14:40:50 Medication Orders None recorded. Patient TargetsNo targets recorded. Patient InstructionsNo instructions recorded. Reason for Referral None Reported. Results Created Date Observation Date Name Description Value Unit Range Abnormal Flag Note LastModifiedBy Organization Detail LastModifiedTime 06/17/20 XR, pelvi s, 1 or 2 view No observ ation record ed. [address] [place], [address], 06/18/2024 11:51:22 07/09/20 24 07/07/2024 CT, pelvi s, w/o contr ast No observ ation record ed. [address] [facility] [address] [place] [address], [id number], 07/09/2024 14:43:45 Result Notes None recorded. Problems No Known Problems Procedures Surgical History None recorded. Imaging Results Imaging Date Name Status LastModified by Organiz ation Details LastModified Time 06/17/2024 XR, pelvis, 1 or 2 view completed [address] - [place] [address] [place], [address], 06/18/2024 11:51:22 07/07/2024 CT, pelvis, w/o contrast completed [address] [facility] [address] [place] [address], [address], 07/09/2024 14:43:45 Procedure Notes None recorded. Medical [...] Updated DateTime 06/17/2024 167.64 cm 38.4 kg/m2 143981.98 [facility] 06/17/2024 10:17:47 Date Recorded Body height Body mass index (BMI) Body weight Provider Name and Address Organization Details Last Updated DateTime 07/29/2024 167.64 cm 38.4 kg/m2 591953.98 [facility] 07/29/2024 09:29:39 Social History Question Answer Notes LastModified by Organizat ion Details LastModified Time Tobacco Smoking Status Never Smoker [facility] 06/17/2024 10:18:40 What Is Your Level Of Alcohol Consumption? Occasional [email or web address] Information not available 06/17/2024 What Is Your Level Of Caffeine Consumption? Moderate [email or web address] Information not available 06/17/2024 What Was The Date Of Your Most Recent Tobacco Screening? 07/29/2024 [email or web address] Information not available 07/29/2024 Have You Ever Been Counseled For Unhealthy Alcohol Use? No [email or web address] Information not available 06/17/2024 Do You Use Any Illicit Or Recreational Drugs? Yes [email or web address] Information not available 06/17/2024 Has Tobacco Cessation Counseling Been Provided? No [email or web address] Information not available 06/17/2024 Do You Or Have You Ever Used Any Other Forms Of Tobacco Or Nicotine? No [email or web address] Information not available 06/17/2024 Sex: Unknown Functional Status None recorded. Mental Status None recorded. Family History Nothing Reported. Medical History Condition Response Coronary Artery Disease N Other N Gout N Blood Diseases N Hyperthyroidism N MRSA N Blood Transfusion N Blood disorders N Head Trauma/Injury N [...] Sclerosis N Sjogren's Syndorme N Heart Attack ([place]) N Heart Problems (atrial fibrillation, [place], pacemaker) N Mental Illness N Diabetes N [...] Diagnosis/Indication Diagnosis SNOMED-CT Code Diagnosis ICD10 Code [id number] MD SHAHNA[facility] - OFFICE - [address] [place] [address] 06/17/2024 08:56:43 06/17/2024 10:47:14 Pain in pelvis 75903252 R10.2 Body mass index 30+ - obesity 545269560 Z68.38 [id number] Sierra Hernandez MD [facility] - OFFICE - [place] [address] [place] [address] 07/29/2024 09:05:13 07/29/2024 10:09:05 Body mass index 30+ - obesity 979333041 Z68.38 Sacroiliac joint pain 20 9491038 M53.3 Health Concerns Section Related Observation LastModified by Organization Detai ls LastModified Time None Recorded Concern Status LastModified by Organization Details LastModified Time None Recorded Advance Directives Directive None Recorded Payers Encounter Date Sequence Insurance Name Policy Number Policy [place] Covered Member ID [place] Member ID Guarantor Name 06/17/2024 1 [facility] [employer] - TOGETHER (MEDICAID HMO) [id number] Karla L Sushil [id number] 1 Karla Sushil 07/29/2024 1 [facility] [employer] - TOGETHER (MEDICAID HMO) [id number] Karla L Sushil [id number] Karla Sushil Notes Date Note Type [...] her and two kids. MD [address],[facility], [place], [address], [facility] 06/18/2024 11:54:16 07/29/2024 text/html The patient is [...] pain for [address]. MD [address],[facility], [place], [address], [facility] 07/29/2024 23:20:36 OBGyn Episode No OBEpisode recorded.
--- OUTSIDE RECORDS SUMMARY | 2024-09-02 09:57 | XMS_ITS | Continuity of Care Document ---
Author Organization [employer] [facility] - [facility] Address [address] [place] [address] Assessment Encounter Date Assessment Date Assessment LastModified [...] Organization Details Last Modified Time Details Appointments [facility] 03:30P M Sierra Hernandez MD Not [...] ast No observ ation record ed. [email or web address] [facility] [address], [place], [address], 07/09/2024 14:43:45 Result Notes None recorded. Problems [...] Updated DateTime 07/29/2024 167.64 cm 38.4 kg/m2 215107.98 g Vinicius Hutson [facility] 07/29/2024 09:29:39 Social History Question Answer Notes LastModified by Organizat ion Details LastModified Time Tobacco Smoking Status Never Smoker Vinicius Hutson [facility] 06/17/2024 10:18:40 What Is Your Level Of Alcohol Consumption? Occasional [email or web address] Information not available 06/17/2024 What Is Your Level Of Caffeine Consumption? Moderate [email or web address] Information not available 06/17/2024 What Was The Date Of Your Most Recent Tobacco Screening? 07/29/2024 [email or web address] Information not available 07/29/2024 Have You Ever Been Counseled For Unhealthy Alcohol Use? No [email or web address] Information not available 06/17/2024 Do You Use Any Illicit Or Recreational Drugs? Yes [email or web address] Information not available 06/17/2024 Has Tobacco Cessation Counseling Been Provided? No [email or web address] Information not available 06/17/2024 Do You Or Have You Ever Used Any Other Forms Of Tobacco Or Nicotine? No [email or web address] Information not available 06/17/2024 Sex: Unknown Functional [...] Pain Y Sjogren's Syndorme N Heart Attack ([place]) N Mental Illness N Heart Problems (atrial fibrillation, [place], pacemaker) N Diabetes N Seizures/Epilepsy N Hyperlipidemia [...] Diagnosis/Indication Diagnosis SNOMED-CT Code Diagnosis ICD10 Code [id number] Sierra Hernandez MD [facility] - [facility] - [address] [address] 07/29/2024 09:05:13 07/29/2024 10:09:05 Body mass index 30+ - obesity 084991589 Z68.38 Sacroiliac joint pain 20 7930954 M53.3 Health Concerns Section Related Observation LastModified by Organization Detai ls LastModified Time None Recorded Concern Status LastModified by Organization Details LastModified Time None Recorded Payers Encounter Date Sequence Insurance Name Policy Number Policy [place] Covered Member ID [place] Member ID Guarantor Name 07/29/2024 1 [facility] [employer] - TOGETHER (MEDICAID HMO) [id number] Karla Ling [id number] Karla Ling Notes Date Note Type [...] pain for 2 hours. Sierra Hernandez MD [address] [place] [address],[address], [address], [facility] 07/29/2024 23:20:36 OBGyn Episode No OBEpisode recorded.
--- OUTSIDE RECORDS SUMMARY | 2024-09-02 09:58 | XMS_ITS | Continuity of Care Document ---
Author Organization [employer] [facility] - [facility] Address [address] [place] [address] Assessment Encounter Date Assessment Date Assessment LastModified by Organization Details LastModified Time 06/17/2024 06/17/2024 XRAYS: AP and Lateral Images of the Lumbar Spine from 12/29/2023 done at [facility] were obtained and interpreted independently by me [...] Spine from December 28, 2023 at [facility] were interpreted independently by me in clinic [...] Organization Details Last Modified Time Details Appointments [facility] 2023 03:30P M Sierra Hernandez MD Not available Not available Not available Lab None recorded. Referral None recorded. Procedures None recorded. Surgeries None recorded. Imaging XR, pelvis, 1 or 2 view 2023 [email or web address] [facility] [place], [address] [place] [address], [address], 06/18/2024 11:51:22 CT, pelvis, w/o contrast - please include L5 in CT 2023 [facility], [address] [facility], [place], [address], 07/09/2024 14:40:50 Medication Orders None recorded. Patient TargetsNo targets recorded. Patient InstructionsNo instructions recorded. Reason for Referral None Reported. Results Created Date Observation Date Name Description Value Unit Range Abnormal Flag Note LastModifiedBy Organization Detail LastModifiedTime 06/17/20 XR, pelvi s, 1 or 2 view No observ ation record ed. [email or web address] [facility] - Office - [place] [address] [place], [address], 06/18/2024 11:51:22 07/09/2007/07/2024 CT, pelvi s, w/o contr ast No observ ation record ed. [email or web address] [facility] [address], [place], [address], 07/09/2024 14:43:45 Result Notes None recorded. Problems No Known Problems Procedures Surgical History None recorded. Imaging Results Imaging Date Name Status LastModified by Organiz ation Details LastModified Time 06/17/2024 XR, pelvis, 1 or 2 view completed [email or web address] [facility] [place] [address], [place], [address], 06/18/2024 11:51:22 Procedure Notes None recorded. Medical [...] Updated DateTime 06/17/2024 167.64 cm 38.4 kg/m2 828805.98 g Vinicius Hutson [facility] 06/17/2024 10:17:47 Social History Question Answer Notes LastModified by Organizat ion Details LastModified Time Tobacco Smoking Status Never Smoker Vinicius flannery, [facility], [facility] 06/17/2024 10:18:40 What Is Your Level Of Alcohol Consumption? Occasional [email or web address] Information not available 06/17/2024 What Is Your Level Of Caffeine Consumption? Moderate Information not available 06/17/2024 What Was The Date Of Your Most Recent Tobacco Screening? 07/29/2024 [email or web address] Information not available 07/29/2024 Have You Ever Been Counseled For Unhealthy Alcohol Use? No [email or web address] Information not available 06/17/2024 Do You Use Any Illicit Or Recreational Drugs? Yes [email or web address] Information not available 06/17/2024 Has Tobacco Cessation Counseling Been Provided? No [email or web address] Information not available 06/17/2024 Do You Or Have You Ever Used Any Other Forms Of Tobacco Or Nicotine? No [email or web address] Information not available 06/17/2024 Sex: Unknown Functional [...] Pain Y Sjogren's Syndorme N Heart Attack ([place]) N Mental Illness N Heart Problems (atrial fibrillation, [place], pacemaker) N Diabetes N Seizures/Epilepsy N Hyperlipidemia [...] Diagnosis/Indication Diagnosis SNOMED-CT Code Diagnosis ICD10 Code [id number] Sierra Hernandez MD [facility] - [facility] - [address] [address] 06/17/2024 08:56:43 06/17/2024 10:47:14 Pain in pelvis 83978901 R10.2 Body mass index 30+ - obesity 374197951 Z68.38 Health Concerns Section Related Observation LastModified by Organization Detai ls LastModified Time None Recorded Concern Status LastModified by Organization Details LastModified Time None Recorded Payers Encounter Date Sequence Insurance Name Policy Number Policy [place] Covered Member ID [place] Member ID Guarantor Name 06/17/2024 1 [facility] [employer] - TOGETHER (MEDICAID HMO) [id number] Karla Ling [id number] Karla Ling Notes Date Note Type [...] and two kids. Sierra Hernandez MD [address] [facility],[address], [address], [facility] 06/18/2024 11:54:16 OBGyn Episode No OBEpisode recorded.
== END 2024-09-02 10:12 | disposition home or self-care (01) ==
PROVIDERS: PCP Family Medicine; Visit Provider Physician Assistant Surgical
DX: I83.11 Varicose veins of right lower extremity with inflammation (principal)
CPT/HCPCS: 99024

== ENCOUNTER → 2024-09-02 09:49 | Outpatient (BNVA) | payer OTHER, SELFPAY | PROVIDERS: PCP Family Medicine; Visit Provider Physician Assistant Surgical | DX: I83.11 Varicose veins of right lower extremity with inflammation (principal); Z09 Encounter for follow-up examination after completed treatment for conditions other than malignant neoplasm; Z98.890 Other specified postprocedural states | CPT/HCPCS: 99212 ==

== ENCOUNTER 2025-07-20 09:03 | Outpatient (AMB) | payer OTHER, SELFPAY ==
[2025-07-20 09:12] VITALS: BMI 37.9
--- NOTE | 2025-07-20 09:12 | MHC.OFFVIS ---
Vital Signs 07/20/25 09:12 Height 5 ft 6 in Weight 235 lb BMI 37.9 Intake Visit Reasons: PRN site follow up s/p Micro 08/2024 Intake Note: Follow up for RIght LE micro 08/22/24 incision thats on upper thigh. Pt states that its a bit bothersome. Also states she has some discoloration and hair loss on left LE. Crap Game Box Person Required: No Accompanied by: Self / Same As Patient Allergies evironmental Allergy (Mild, Uncoded 07/20/25 09:14) Itchy Eyes HPI HPI PRN site follow up s/p Micro 08/2024: Details: The patient is a 40-year-old patient presenting with a palpable mass on the posterior right thigh and concerns related to a previous left knee injury. The patient reports a palpable mass on the posterior thigh, which she describes as a knot or bump. This mass was discovered incidentally while cleaning and has been present since the vein stripping procedure. The mass is approximately 3 to 4 cm in size and is not associated with pain but feels tingly and cold to touch. The patient also has a history of a significant knee injury that occurred about a year ago, resulting in a bone contusion and persistent swelling. The swelling has reduced following cortisone injections, but the area remains pale with visible veins and no hair growth. She now presents for vascular evaluation [facility] Medical History FH: mastectomy (~2023) Surgical History Hx of wisdom tooth extraction Social History Patient Tobacco Use Status: Former Tobacco user Review of Systems Const All systems reviewed & are unremarkable except as noted in HPI and below Reports no additional complaints ENT Reports Normal hearing present Card Denies chest pain, Denies chest pain at rest, Denies chest pain with activity and Denies pedal edema Resp Denies cough GI Denies abdominal pain Musc Denies abnormal gait, Denies muscle cramps and Denies radiating pain into limb Skin/Breast Denies skin ulcer and Denies wounds Neuro Reports Normal hearing present and Denies abnormal gait Psych Reports no additional complaints Physical Exam Vital Signs: BMI result Body Mass Index 37.9 Const General: cooperative, healthy appearing and comfortable Orientation/consciousness: oriented to person, oriented to place and oriented to time HEENT Head: Yes normal to inspection Neck Neck: Yes normal visual inspection Carotids: no bruits Chest Chest palpation & inspection: normal inspection of the chest Resp Effort & Inspection: normal respiratory effort and able to speak in complete sentences Auscultation: clear to auscultation bilaterally, no crackles, no rales, no rhonchi and no wheezes Cardio Rate: regular rate Rhythm: regular rhythm Heart sounds: S1 normal heart sound present and S2 normal heart sound present Bruits: no carotid bruits Peripheral pulses: Peripheral pulses 2+ throughout GI Inspection: Yes normal to inspection Skin Other: Right posterior thigh mass a proximally 3 cm concerning for lipoma Wounds: no wounds Hair: normal Neuro General: oriented to person, oriented to place and oriented to time Cranial nerves: Yes CN's II-XII intact bilaterally and Yes Normal hearing present Cognition (Neuro): normal cognition Motor exam (neuro): 5/5 motor strength present throughout Extrem Other: venous exam: No significant superficial varicosities or spider telangiectasias, minimal edema General: No clubbing, No cyanosis and No edema Psych Appearance: grossly normal Mental Status: mental status grossly normal Speech and movement: Normal speech and movement present Assessment & Plan Assessment & Plan (1) Varicose veins of right lower extremity with inflammation: Code(s): I83.11 - Varicose veins of right lower extremity with inflammation Category: Medical Plan: In short very little concern of venous disease. I do think the area on the left side has some spider telangiectasias unable to explain the area lacking hair but no underlying masses were palpable no other significant findings. Did provide reassurance for the patient. (2) Lipoma of right lower extremity: Code(s): D17.23 - Benign lipomatous neoplasm of skin and subcutaneous tissue of right leg Category: Medical Plan: Right posterior thigh bedside ultrasound was performed. Concerning for a hardened mass which is similar to findings of a lipoma. I did explain to the patient should it increase in size or become painful for her would refer her to General surgery for evaluation. Thank you for allowing us to assist in this patient's care. If there are any questions or concerns please do not hesitate to contact us. Coding Level of Care Code Est Pt Level 4 (64027) Diagnoses Varicose veins of right lower extremity with inflammation I83.11 Lipoma of right lower extremity D17.23
--- OUTSIDE RECORDS SUMMARY | 2025-07-20 09:51 | XMS_ITS | Clinical Summary ---
Author Organization [facility] Address [address] [place] [phone] Phone Care Team Providers Care Banner Painter Name Role Phone Marci Banda MD Primary Care Provider [phone] Allergies No known active allergies Medications testosterone cypionate (DEPO-TESTOTERON E) 200 mg/mL injection 4 Active cetirizine (ZYRTEC) 10 MG tablet Take 10 mg by mouth daily. Active terbinafine HCL (LAMISIL) 250 mg tablet TAKE 2 TABLETS DAILY FOR 7 DAYS EVERY 28 DAYS FOR 6 MONTHS 4 Active testosterone (ANDROGEL) 1.62 % (20.25 mg/1.25 gram) transdermal gel packet APPLY 2.5 G (2 PACKETS TOTAL) TOPICALLY 1 (ONE) TIME EACH DAY. Active Active Problems No known active problems Encounters Date Type Department Care Team Description 05/16/2025 8:41 AM EDT - 05/16/2025 11:59 PM EDT Hospital Encounter [facility] [address] [place] [address] Marci Banda MD Discharge Disposition: Home or Self Care 04/26/2025 8:20 AM EDT Office Visit [facility] [address] [place] [id number] Miller Sauer PA-C Rupture of anterior cruciate ligament of left knee, subsequent encounter (Primary Dx); Complex tear of medial meniscus of left knee as current injury, subsequent encounter from Last 3 Months Immunizations Immunization Administration Dates Next Due COVID-19 (Pre-06/29) Pfizer Vaccine, mRNA, PF ,10/13/2020 Influenza Quadrivalent Preservative Free IM 07/08,06/07/2019 Pneumococcal polysaccharide PPSV23 12/30/2018 Social History Tobacco Use Types Packs/Day Years Used Date Smoking Tobacco: Former Cigarettes Q uit: 2013 Smokeless Tobacco: Never Tobacco Cessation:Counseling Given: Not Answered Education Answer Date Recorded Are you interested in more education? Not on john e 01/02/2023 Are you concerned about learning? Not on file 01/02/2023 No 01/02/2023 No 01/02/2023 Digital Access Answer Date Recorded No 01/30/2023 No 01/30/2023 Reliable internet access at home? Not on file 01/30/2023 Device with a working camera? Not on file Intimate Partner Violence Answer Date R ecorded Are you denied basic needs s uch as food, clothing, or medical care? No 05/27/2024 In the past 12 months have y ou been in a relationship with a person who hurts, threatens, or tries to control you? No 05/27/2024 Are you denied basic needs s uch as food, clothing, or medical care? No 05/27/2024 In the past 12 months have y ou been in a relationship with a person who hurts, threatens, or tries to control you? No 05/27/2024 Comments Unknown Sex and Gender Information Value Date Recorded Sex Assigned at Female 05/27/2024 7:37 PM EDT Legal Sex Female 9:18 PM EDT Gender Identity Female 05/27/2024 7:37 PM EDT Sexual Orientation Don't know 05/27/2024 7: 37 PM EDT Last Filed Vital Signs Vital Sign Reading Time Taken Comments Blood Pressure 121/83 05/27/2024 10:12 PM EDT Pulse 78 06/27/2024 10:07 AM EDT Temperature 36.6 C (97.9 F) 06/27/2024 10:07 AM EDT Respiratory Rate 16 05/27/2024 10:12 PM EDT Oxygen Saturation 97% 06/27/2024 10:07 AM EDT Inhaled Oxygen Concentration - - Weight 106.6 kg (235 lb) 07/12/2024 4:23 PM EST Height 167.6 cm (5' 6 ) 07/12/2024 4:23 PM EST Body Mass Index 37.93 07/12/2024 4:23 PM EST Plan of Treatment Health Maintenance Due Date Last Done Comments Adult Td,Tdap Booster 1983 DEPRESSION SCREENING 1995 SMOKING Hx and SMOKELESS TOBACCO SCREENING 01/26/1996 HEPATITIS C SCREENING 2001 HIV ONE-TIME SCREENING (18-6 5 YEARS) 2001 MAMMOGRAM 2023 INFLUENZA VACCINE (#1) 2025 , 06/07/2019 COVID-19 VACCINE (3 - 2024-2 6 season) 2025 11/03/2020, 10/13/2020 SCREENING FOR DIABETES 04/21/2026 04/21/2023 PAP SMEAR 05/16/2028 05/16/2025 PNEUMOCOCCAL VACCINES (0-49 years) Aged Out 12/30/2018 No longer eligible b ased on patient's age to complete this topic HEPATITIS A VACCINES Aged Out No long er eligible based on patient's age to complete this topic HIB VACCINES Aged Out No longer eligi ble based on patient's age to complete this topic IPV VACCINES Aged Out No longer eligi ble based on patient's age to complete this topic MENINGOCOCCAL VACCINES (ACWY) Aged Out No longer eligible based on patient's age to complete this topic MENINGOCOCCAL VACCINES (B) Aged Out N o longer eligible based on patient's age to complete this topic Medical Devices Not on file Procedures Procedure Name Priority Date/Time Associated Diagnosis Comments PAP TEST Routine 05/16/2025 12:00 AM EDT from Last 3 Months Results * Pap Test (05/16/2025 12:00 AM EDT) Report [address] [address] Entry Level Assistant Manager: Soy Lucio MD [facility] S[facility]ER Cytology Report FINAL DIAGNOSIS A. PAP SMEAR (THIN PREP) CE: SPECIMEN ADEQUACY: Satisfactory for evaluation; transformation zone present. INTERPRETATION: NEGATIVE FOR INTRAEPITHELIAL LESION OR MALIGNANCY. This specimen was analyzed by the automated ThinPrep Imaging System ([employer] and the selected grace were reviewed by a cable maintainer. Electronically Signed Out By: JAME Engle(ASCP) The Pap test is a screening test primarily for squamous cancers and precursors and has associated false-negative and false-positive results. New technologies such as liquid-based preparations may decrease but will not eliminate all false-negative results. Regular sampling and follow-up of unexplained clinical signs and symptoms are recommended to minimize false negative results. CLINICAL HISTORY Date of Last Menstrual Period: Not Provided Menstrual History: Unknown Other Clinical Conditions: Screening Pap SPECIMEN SOURCE A: PAP SMEAR (THIN PREP) CE Patient Name: KARLA LING : 1985 (Age: 40) Sex: F Institution: [facility] Location: [facility] Date of Collection: 05/16/2025 Date of Reported: 05/22/2025 11:27 Results to: Marci Banda MD [facility] Final Diagnosis A. PAP SMEAR (THIN PREP) CE: SPECIMEN ADEQUACY: Satisfactory for evaluation; transformation zone present. INTERPRETATION: NEGATIVE FOR INTRAEPITHELIAL LESION OR MALIGNANCY. This specimen was analyzed by the automated ThinPrep Imaging System ([employer] and the selected grace were reviewed by a cable maintainer. [facility] Conversion Type (Conversion Source) 05/16/2025 05/18/2025 10:17 AM EDT us Marci Banda MD CYTOLOGY ORDERABLES Edited R esult - Final [facility] [address] [place] [address] from Last 3 Months Insurance [facility] DIRECT [employer] DIRECT [employer] DIRECT [employer] [place] [address] [place] [address] [employer] DIRECT Care Teams Banner Painter Relationship Specialty Start Date End Date Marci Banda MD [address] [place] [phone] [email or web address] PCP - General Family Medicine 08/28/23 Additional Source Comments The information contained in this document represents components of the legal health record. It is not the complete legal health record.[facility]
--- OUTSIDE RECORDS SUMMARY | 2025-07-20 09:51 | XMS_ITS | Clinical Summary ---
Author Organization [facility] Address [address] [place] [address] Care Team Providers Care Cylinder Valve Repairer Name Role Phone Maureen Morafer Primary Care Provider [phone] Allergies Active Allergy Reactions Criticality Noted Date Comments Tree Pollen[place] Hives 05/29 [place] oil Medications cetirizine (ZyrTEC) 10 mg tablet Take 10 mg by mouth in the morning. Active testosterone enanthate (DELATESTRYL) 200 mg/mL injection Inject into the shoulder, thigh, or buttocks muscle as directed per week. Wednesdays 4 Active testosterone cypionate (DEPO-TESTOSTER ONE) 200 mg/mL injection 4 Active testosterone 1.62 % (20.25 mg/1.25 gram) gel in packet APPLY 3.75 G (3 PACKETS TOTAL) TOPICALLY 1 (ONE) TIME EACH DAY. Active Active Problems No known active problems Encounters Date Type Department Care Team Description 06/06/2025 myChart Message [facility] Plastic Surgery [address] [place] [phone] Washcoat Wiper: Shama Olivares MD Patient Satisfaction and Quality of Life After Gender Affirming Mastectomy from Last 3 Months Social History Tobacco Use Types Packs/Day Years Used Date Smoking Tobacco: Never Smokeless Tobacco: Never Tobacco Cessation:Counseling Given: Not Answered Alcohol Use Standard Drinks/Week Comments Yes 0 (1 standard drink = 0.6 oz pur e alcohol) 2 per month Comments No Sex and Gender Information Value Date Recorded Sex Assigned at Female 05/20/2023 1:46 PM EDT Legal Sex Female 1:44 PM EDT Gender Identity Non-binary 05/21/2023 10:33 PM EDT Sexual Orientation Queer 05/21/2023 10 :33 PM EDT Last Filed Vital Signs Vital Sign Reading Time Taken Comments Blood Pressure 123/76 03/23/2024 1:15 PM EDT Pulse 58 03/23/2024 1:23 PM EDT Temperature 36.2 C (97.1 F) 03/23/2024 12:49 PM EDT Respiratory Rate 12 03/23/2024 1:23 PM EDT Oxygen Saturation 96% 03/23/2024 1:23 PM EDT Inhaled Oxygen Concentration - - Weight 108.4 kg (238 lb 15.7 oz) 03/23/2024 7:49 AM EDT Height 170 cm (5' 6.93 ) 03/23/2024 7:49 AM EDT Body Mass Index 37.51 03/23/2024 7:49 AM EDT Plan of Treatment Health Maintenance Due Date Last Done Comments Cervical Cancer Screening 1985 HIV Screening 1985 HPV and Pap Smear 1983 Hepatitis C Screening 1983 Pap Smear 1983 Varicella Vaccines (1 of 2 - 13+ 2-dose series) 01/26/1996 Hepatitis B Vaccines (1 of 3 - 19+ 3-dose series) 2002 DTaP,Tdap,and Td Vaccines (1 - Tdap) 2005 Alcohol/Substance Use Screening 09/07/2024 Depression Screening and Follow-Up 09/07/2024 Social Drivers of Health Annual Screening 09/07/2024 COVID-19 Vaccine (3 - 2024- season) 2025 11/03/2020, 10/13/2020 Influenza Vaccine (#1) 2025 , 06/07/2019 Pneumococcal Vaccine: Pediatric (0-5 Years) and At-Risk Patients (6-50 Years) Aged Out 12/30/2018 No longer eligible b ased on patient's age to complete this topic Mammogram Discontinued 06/07/2024 Procedures * Due to [place] state law, this organization might not be sharing negative HIV tests. Procedure Name Priority Date/Time Associated Diagnosis Comments US BREAST LIMITED LEFT Routine 06/07/2024 11:11 AM EDT Surgery follow-up from Last 3 Months or Most Recently Relevant to Health Maintenance Results * Due to [place] state law, this organization might not be sharing negative HIV tests. * US Breast Limited Left (06/07/2024 11:11 AM EDT) Anatomical Region Laterality Modality Breast Left Ultrasound Narrative 06/07/2024 1:54 PM EDT Karla Ling Exam Date: 06/07/[address] [address] INDICATIONS Palpable tender left breast lump status post gender-affirming mastectomy. TECHNIQUE US Breast Limited Left COMPARISON None FINDINGS Targeted ultrasound of the left breast was performed. Correlating with the palpable abnormality at 5:00 is an oval fluid collection measuring 4.8 x 3.4 x 6.4 cm. The collection is predominantly anechoic, with internal septations. The margins are circumscribed. There is posterior acoustic enhancement. IMPRESSION The palpable mass in the left breast represents a loculated fluid collection which is consistent with organizing seroma or hematoma. BI-RADS ATLAS category (left): 2 - Benign MANAGEMENT The patient requests ultrasound-guided aspiration for symptomatic relief. This will be scheduled. If this radiology report contains a blank impression section, it is an incomplete radiology report. Please contact the interpreting radiologist or applicable radiology division as soon as possible to obtain the completed interpretation. Ginny Merida MD Karen [facility] BI PROCEDURES Final Result from Last 3 Months or Most Recently Relevant to Health Maintenance Insurance [facility] Care Teams Cylinder Valve Repairer Relationship Specialty Start Date End Date Marci Mora [address] [place] [phone] PCP - General Endocrinology 05/20/23
--- OUTSIDE RECORDS SUMMARY | 2025-07-20 09:51 | XMS_ITS | Encounter Summary ---
Author Organization [facility] Address [address] [place] [address] [place] [phone] Phone Care Team Providers Care Director Cardiac Name Role Phone Marci Banda MD Primary Care Provider [phone] Encounter Details Date Type Department Care Team (Late st Contact Info) Description 06/27/2024 Procedure Pass [facility], [address] [place] [address] Social History Tobacco Use Types Packs/Day Years Used Date Smoking Tobacco: Former Cigarettes Q uit: 2014 Smokeless Tobacco: Never Education Answer Date Recorded Are you interested [...] Don't know 05/27/2024 7: 37 PM EDT documented as of this encounter Plan of Treatment Not on file documented as of this encounter Visit Diagnoses Not on filedocumented in this encounter Care Teams Director Cardiac Relationship Specialty Start Date End Date Marci Banda MD [address] [place] [phone] [email or web address] PCP - General Family Medicine 08/28/23 documented as of this encounter Additional Source Comments The information contained in this document represents components of the legal health record. It is not the complete legal health record.[facility]
--- OUTSIDE RECORDS SUMMARY | 2025-07-20 09:51 | XMS_ITS | Encounter Summary ---
Author Organization [facility] Address [address] [facility] [address] [place] [phone] Phone Care Team Providers Care [employer] Flatbed Truck Driver Name Role Phone Marci Banda MD Primary Care Provider [phone] Encounter Details Date Type Department Care Team (Late st Contact Info) Description 06/20/2024 Procedure Pass [facility], Ct Scan - [address] [address] Social History Tobacco Use Types Packs/Day Years [...] on filedocumented in this encounter Care Teams [employer] Flatbed Truck Driver Relationship Specialty Start Date End Date Marci Banda MD [address] [place] [phone] [email or web address] PCP - General Family Medicine 08/28/23 documented as of this encounter Additional Source Comments The information contained in this document represents components of the legal health record. It is not the complete legal health record.[facility]
--- OUTSIDE RECORDS SUMMARY | 2025-07-20 09:51 | XMS_ITS | Encounter Summary ---
Author Organization [facility] Address [address] [place] [address] [place] [phone] Phone Care Team Providers Care Strategic Communications Specialist Name Role Phone Marci Banda MD Primary Care Provider [phone] Encounter Details Date Type Department Care Team (Late st Contact Info) Description 11/18/2023 Procedure Pass [facility], [address] [address] Social History Tobacco Use Types Packs/Day Years [...] with a working camera? Not on file Comments Unknown Sex and Gender Information Value [...] on filedocumented in this encounter Care Teams Strategic Communications Specialist Relationship Specialty Start Date End Date Marci Banda MD [address] [place] [phone] [email or web address] PCP - General Family Medicine 08/28/23 documented as of this encounter Additional Source Comments The information contained in this document represents components of the legal health record. It is not the complete legal health record.[facility]
--- OUTSIDE RECORDS SUMMARY | 2025-07-20 09:51 | XMS_ITS | Encounter Summary ---
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 Role Phone Marci Banda MD Primary Care Provider + [phone] Reason for Referral * MRI/CAT Scan - Closed Specialty Diagnoses / Procedures Referred By Contac t Referred To Contact Radiology Diagnoses Pelvic and perineal pain Procedures CT Pelvis CHG CT SCAN,PELVIS,W/O CONTRAST CHG CT SCAN OF PELVIS CONTRAST CHG CT SCAN OF PELVIS COMBO Sierra Hernandez MD [address] [place] [id number] Phone: tel: fax: Referral ID Status Reason Start Date Expiration Date Visits Re quested Visits Authorized [id number] Closed 06/20/2024 09/15/2024 1 1 Encounter Details Date Type Department Care Team (Latest Contact Info) Description 06/20/2024 Transcribe Orders Virtual Department [address] [place] [address] Sierra Hernandez MD [address] [place] [id number] Pelvic and perineal pain (Primary Dx) Social History Tobacco Use Types Packs/Day Years Used Date Smoking Tobacco: Former Cigarettes Q uit: 2013 Smokeless Tobacco: Never Education Answer Date Recorded [...] on file documented as of this encounter Results * CT PELVIS (BONY PELVIS) WITHOUT CONTRAST (07/07/2024 3:30 PM EDT) Anatomical Region Laterality Modality Pelvis Computed Tomogra phy 07/09/2024 2:17 PM EDT Impressions 07/09/2024 2:35 PM EDT 1. No evidence of acute fracture or malalignment. Findings suggestive of a healing nondisplaced fracture of the right L5 pars interarticularis. 2. Minimal degenerative change of the symphysis pubis. Bilateral lower lumbar facet arthropathy. 3. Right inguinal lymphadenopathy, correlation with patient's clinical presentation may be considered. A clinically significant result was initiated on 07/09/2024 2:35 PM, Message ID [id number]. Narrative 07/09/2024 2:[address] PELVIS (BONY PELVIS) WITHOUT CONTRAST Referring clinician's provided indication for this examination in [facility]: Outside Radiology Order; pelvic pain TECHNIQUE: Multidetector-row CT of the bony pelvis, without intravenous contrast using dose-modulation techniques. Images were reconstructed in the axial, coronal, and sagittal planes. COMPARISON: MRI lumbar spine 12/28/2023 FINDINGS: Bones and Joints: There is no evidence of acute fracture, subluxation, or dislocation. The right L5 pars interarticularis demonstrates moderate sclerosis, may correspond to a healing nondisplaced pars fracture noted on prior imaging. There is bilateral facet arthropathy at L3-L4, L4-L5, and L5-S1, right greater than left. The hip joint space is preserved. There is minimal degenerative change of the sacroiliac joints. Soft Tissues: The muscles demonstrate normal bulk and density. Additional Findings: There are well-circumscribed hypoattenuating bilateral adnexal structures measuring 4.0 x 3.4 cm on the right (series 5 image 71) and 1.8 x 1.6 cm on the left (series 5 image 76), likely representing ovarian cysts or dominant follicles in this presumably premenopausal patient. There are scattered colonic diverticula without evidence of acute diverticulitis. There is a partially visualized right inguinal lymph node measuring 1.4 cm in the short axis dimension (series 5 image 141, series 11 image 136). Procedure Note Lyndsay Brown MD - 07/09/2024 CT PELVIS (BONY PELVIS) WITHOUT CONTRAST Referring clinician's provided indication for this examination in [facility]:Outside Radiology Order; pelvic pain TECHNIQUE: Multidetector-row CT of the bony pelvis, without intravenouscontrast using dose-modulation techniques. Images were reconstructed inthe axial, coronal, and sagittal planes. COMPARISON: MRI lumbar spine 12/28/2023 FINDINGS: Bones and Joints: There is no evidence of acute fracture, subluxation, ordislocation. The right L5 pars interarticularis demonstrates moderatesclerosis, may correspond to a healing nondisplaced pars fracture noted onprior imaging. There is bilateral facet arthropathy at L3-L4, L4-L5, andL5-S1, right greater than left. The hip joint space is preserved. There isminimal degenerative change of the sacroiliac joints. Soft Tissues: The muscles demonstrate normal bulk and density. Additional Findings: There are well-circumscribed hypoattenuatingbilateral adnexal structures measuring 4.0 x 3.4 cm on the right (series 5image 71) and 1.8 x 1.6 cm on the left (series 5 image 76), likelyrepresenting ovarian cysts or dominant follicles in this presumablypremenopausal patient. There are scattered colonic diverticula withoutevidence of acute diverticulitis. There is a partially visualized rightinguinal lymph node measuring 1.4 cm in the short axis dimension (series 5image 141, series 11 image 136). IMPRESSION: 1. No evidence of acute fracture or malalignment. Findings suggestive of ahealing nondisplaced fracture of the right L5 pars interarticularis. 2. Minimal degenerative change of the symphysis pubis. Bilateral lowerlumbar facet arthropathy. 3. Right inguinal lymphadenopathy, correlation with patient's clinicalpresentation may be considered. A clinically significant result was initiated on 07/09/2024 2:35 PM,Message ID [id number]. Sierra Hernandez MD IMG CT XSPECIALTY ORDERABLES Fi nal Result documented in this encounter Visit Diagnoses Diagnosis Pelvic and perineal pain- Primary Pelvic and perineal pain documented in this encounter Care Teams Fib[employer]isher Relationship Specialty Start Date End Date Marci Banda MD [address] [place] [phone] [email or web address] PCP - General Family Medicine 08/28/23 documented as of this encounter Additional Source Comments The information contained in this document represents components of the legal health record. It is not the complete legal health record.[facility]
== END 2025-07-20 09:59 | disposition home or self-care (01) ==
LOC: HO.HVS 09:04
PROVIDERS: PCP Family Medicine; Visit Provider Surgery Vascular Surgery
DX: I83.11 Varicose veins of right lower extremity with inflammation (principal); D17.23 Benign lipomatous neoplasm of skin and subcutaneous tissue of right leg
CPT/HCPCS: 99214

== ENCOUNTER → 2025-07-20 09:03 | Outpatient (BNVA) | payer OTHER, SELFPAY | PROVIDERS: PCP Family Medicine; Visit Provider Surgery Vascular Surgery | DX: I83.11 Varicose veins of right lower extremity with inflammation (principal); D17.23 Benign lipomatous neoplasm of skin and subcutaneous tissue of right leg | CPT/HCPCS: 99212 ==